=== PATIENT | male | born 1955 | race Caucasian/White ===

== ENCOUNTER 2018-03-27 08:30 | Outpatient (RCR) | payer MEDICARE, SELFPAY ==
--- NOTE | 2018-03-23 08:30 | PTTR_ITS ---
DATE: 03/23/18 SUBJECTIVE: Patient reports 0/10 pain in his right shoulder upon arrival. States he felt good after the exercises last session and didn t have any increases in pain. Still has not heard from neurosurgeon about appointment for spine surgery. Suggested he calls the referring physician to let her know. OBJECTIVE: Manual therapy: ([id number]). Performed right glenohumeral joint caudal distraction. Right glenohumeral joint grade 2/3 inferior and posterior mobilizations. STM right anterior and posterior cuff into upper trapezius and levator scapula. Cross friction massage over greater tuberosity. PROM into right shoulder flexion, scaption, ER, and IR. Therapeutic procedures ([id number]). [X] See flow sheet: Continued progressing right shoulder AAROM, scapular stabilization, and rotator cuff strengthening program. [X] Provided skilled instruction in proper exercise performance: for proper body mechanics and postural awareness. [X] Provided skilled manual cues to facilitate proper muscle recruitment and/or movement pattern: Several cues needed to keep arms in at side for scapular retraction with ER. Continued with wellness portion of program for completion of the ex x 15 minutes. Will continue to advance with strength training within symptom allowance. ROM steadily improving. Declined need of modality post session. Direct treatment time: 30 minutes Total treatment time: 45 minutes
--- NOTE | 2018-03-27 13:07 | PTTR_ITS ---
DATE: 03/27/18 SUBJECTIVE: Jadon states that he is doing well in regards to his shld. He sees neurology tomorrow, and is anxious to hear what they will recommend for his neck. OBJECTIVE: Manual therapy: ([id number]). mobilizations of right GH jt including posterior and inferior glides, caudal and lateral distractions. P/AAROM. CFM over anterior cuff and STM t/o deltoid region. I then continued with ROM. Therapeutic procedures ([id number]). * x See flow sheet: for RTC strengthening, scapular stabilizations and AAROM. * x Provided skilled instruction in proper exercise performance: proper scapular positioning and postural cues. Finished via wellness at no charge. declined the need for cryo post session. Direct treatment time: 30 min Total treatment time: 40 min
--- NOTE | 2018-04-10 11:49 | NT_ITS ---
April 10, 2018 Jadon cancelled all PT appts at this time due to recently under going cervical surgery. He will contact to reschedule when can resume plan of care and strength training for his RTC.
== END 2018-04-21 23:59 | disposition home or self-care (01) ==
LOC: PT 08:30
PROVIDERS: PCP Family Medicine; Referring Provider Student in an Organized Health Care Education/Training Program; Visit Provider Student in an Organized Health Care Education/Training Program
DX: Z47.89 Encounter for other orthopedic aftercare (principal); M75.121 Complete rotator cuff tear or rupture of right shoulder, not specified as traumatic; M19.011 Primary osteoarthritis, right shoulder
CPT/HCPCS: 97110; 97140

== ENCOUNTER → 2018-04-19 08:30 | Outpatient (CLI) | payer MEDICARE, SELFPAY | PROVIDERS: PCP Family Medicine; Visit Provider Student in an Organized Health Care Education/Training Program | DX: Z47.89 Encounter for other orthopedic aftercare (principal); M75.121 Complete rotator cuff tear or rupture of right shoulder, not specified as traumatic; M19.011 Primary osteoarthritis, right shoulder ==

== ENCOUNTER 2018-05-22 02:23 | Outpatient (CLI) | payer MEDICARE, SELFPAY ==
[2018-05-22 11:17] LABS: Hemoglobin A1C 10.5 % (4.5-6.2)
== END 2018-05-22 02:43 ==
PROVIDERS: PCP Family Medicine; Visit Provider Family Medicine
DX: E11.9 Type 2 diabetes mellitus without complications (principal)
CPT/HCPCS: 36415; 83036

== ENCOUNTER 2018-05-24 01:00 | Outpatient (CLI) | payer MEDICARE, SELFPAY ==
[2018-05-24] MEDS: Barium Sulfate 700 MG TAB PO (09:20)
[2018-05-24] MEDS: Barium Sulfate 60% W/V 355 ML BTL PO (09:23)
--- NOTE | 2018-05-24 09:24 | DI.RAD_ITS ---
SYMPTOM/DIAGNOSIS: DIFFICULTY SWALLOWING SOLIDS, DYSPHAGIA, R13.10 BARIUM SWALLOW: Fluoroscopy Time: 2 minutes 01 second Routine examination was performed. PA and lateral chest was performed. Heart size and pulmonary vasculature are within normal limits. No focal consolidating infiltrates, effusions or pneumothoraces are identified. Degenerative changes are seen in the spine. Barium swallow was performed according to protocol. During swallowing, there was penetration of contrast. During the prone portion of the examination, there was aspiration. The patient did exhibit the cough reflex. No gastroesophageal reflux was seen. No intrinsic or extrinsic masses are seen in the esophagus. Note was made of an asymmetric collection of contrast in the right vallecula and right puriform sinus. Following the ingestion of a barium tablet, the tablet collected in the right vallecula. This corresponded to the sensation the patient feels with solid food.. The table eventually passed into the stomach. IMPRESSION: 1. Findings of aspiration during the examination. 2. Asymmetric collection of fluid and solidi material in the right vallecula and puriform sinus during the examination. A modified barium swallow performed in conjunction with the Department of Speech Pathology is recommended in this patient.
== END 2018-05-24 01:20 ==
PROVIDERS: PCP Family Medicine; Visit Provider Family Medicine
DX: R13.10 Dysphagia, unspecified (principal); T18.8XXA Foreign body in other parts of alimentary tract, initial encounter
CPT/HCPCS: 74220; J3490

== ENCOUNTER → 2018-07-12 08:27 | Outpatient (BNVA) | payer MEDICARE, SELFPAY | PROVIDERS: PCP Family Medicine; Visit Provider Student in an Organized Health Care Education/Training Program | DX: M75.121 Complete rotator cuff tear or rupture of right shoulder, not specified as traumatic (principal); Z47.89 Encounter for other orthopedic aftercare; M54.5 Low back pain; E11.9 Type 2 diabetes mellitus without complications; Z79.84 Long term (current) use of oral hypoglycemic drugs; I10 Essential (primary) hypertension | CPT/HCPCS: 99213 ==

== ENCOUNTER 2018-08-24 08:59 | Outpatient (CLI) | payer MEDICARE, SELFPAY ==
[2018-08-24 12:15] LABS: Hemoglobin A1C 7.2 % (4.5-6.2)
== END 2018-08-24 09:19 ==
PROVIDERS: PCP Family Medicine; Visit Provider Family Medicine
DX: E11.9 Type 2 diabetes mellitus without complications (principal)
CPT/HCPCS: 36415; 83036

== ENCOUNTER 2018-09-08 01:36 | Outpatient (CLI) | payer MEDICARE, SELFPAY ==
[2018-09-08 12:45] LABS: Anion Gap 8.3 mmol/L (3-11); BUN 24 mg/dL (7-18); CO2 27.7 mmol/L (21.0-32.0); CREATININE 1.45 mg/dL (0.70-1.30); Calcium 9.4 mg/dL (8.5-10.1); Chloride 99 mmol/L (98-107); Estimated GFR 49.15 (mL/min/1.73m2); Glucose 165 mg/dL (70-100); Sodium 135 mmol/L (136-145)
== END 2018-09-08 01:56 ==
PROVIDERS: Family Medicine; PCP Family Medicine; Visit Provider Family Medicine
DX: E87.5 Hyperkalemia (principal)
CPT/HCPCS: 36415; 80048

== ENCOUNTER 2018-10-06 08:12 | Emergency (ER) | payer MEDICARE, SELFPAY ==
[2018-10-06 08:16] VITALS: BP 142/86; PULSE 58; RESP 16; TEMP 36.6; O2SAT 96
--- NOTE | 2018-10-06 08:33 | ED.GENADUL_ITS ---
Discharge Plan Disposition Patient Disposition: HOME Condition: Stable Discharge Details Chief Complaint: Chest/Rib Clinical Impression: Contusion of rib on right side Primary Care Provider: Kleber Méndez ED Provider: Valentín Cordero Home Meds and New Rx's Prescriptions: Continued glipizide 10 mg tablet 10 mg PO BID Qty: 60 RF: 2 FreeStyle Lite Strips strip 1 ea Miscellaneous DAILY Qty: 100 RF: 5 cyclobenzaprine 10 mg tablet 10 mg PO TID PRN (Reason: muscle spasm) Qty: 10 RF: 0 benzonatate 100 mg capsule 100 mg PO TID PRN (Reason: cough) Qty: 30 RF: 2 oxycodone 5 mg tablet 5 mg PO HS MDD 5 mg Qty: 30 RF: 0 CENTRUM SILVER TABLET 1 EACH tablet 1 tab PO DAILY RF: 0 NARCOTIC CONTRACT RF: 0 aspirin [Aspirin Low-Strength] 81 MG tablet,chewable 81 mg PO DAILY RF: 0 blood-glucose meter [FreeStyle Lite Meter] 1 EACH kit 1 ea Miscellaneous DAILY Qty: 1 RF: 0 allopurinol 100 MG tablet 100 mg PO DAILY Qty: 90 RF: 4 amitriptyline 10 MG tablet 1 tab PO HS Qty: 90 RF: 4 sertraline [Zoloft] 50 MG tablet 1 tab PO QAM Qty: 90 RF: 4 clotrimazole 45 GM cream Topical BID Qty: 45 RF: 3 lancets [FreeStyle Lancets] 28 gauge misc 1 ea Miscellaneous DAILY Qty: 100 RF: 5 metformin 1,000 mg tablet extended release 24hr 1,000 mg PO DAILY Qty: 90 RF: 4 lorazepam 2 mg tablet 2 mg PO HS Qty: 30 RF: 2 lisinopril 20 mg tablet 20 mg PO DAILY Qty: 90 RF: 4 ibuprofen 800 mg tablet 800 mg PO TID PRN (Reason: pain) Qty: 90 RF: 2 Discharge Instructions Instructions: Rib Contusion (ED) Additional Instructions: If you are not better in a week see your primary care provider if you feel you are having severe more pain or new pain such as abdominal pain or headaches return to the emergency department Medical Decision Making 63 yo male states he slipped on ice 2 days ago from standing height and landd on his right side with his phone in his chest pocket. He denies head trauma, loc and has not had n/v or headache since and has no midline neck pain or tenderness even on rom. Has point tenderness over right 4-8th ribs in midaxillary line, no abdominal tenderness, clear lungs. He is declining pain meds at this time, came in to get checked for rib fx's. Suspect contusion but will xray to eval for fx vs ptx. Has no abdominal tenderness so do not feel abd imaging indicated and no back tenderness, neck pain or SOUSA so do not feel imaging of head, c spine and back indicated. xray negative on my read, remains stable. He is declining pain medication for home, I will send him home with incentive spirometer. I advised if radiology sees anything that I missed I will call him Differential Diagnosis contusion, fx, ptx Imaging Data Radiologic Study: Attestation: I personally reviewed and interpreted this imaging study as follows: Imaging: X-Ray My impression: no acute findings HPI General Mode of arrival: ambulatory . Date/Time Provider Initiated Documentation: 10/06/18 08:14 . Limitations to Documentation: no limitations . Information obtained by: patient . History of Present Illness 63 year old M presents to the emergency department with the chief complaint of right sided chest pain, described as moderate, with intensity rated at 5. Quality is described as stabbing and aching, and is localized to the chest. Patient reports no radiation. Patient started experiencing this day(s) (2) and it has been constant. No relieving factors improve symptom(s), Other factors that worsen symptoms (palpation) . Patient notes no other symptoms.. Patient did receive the following treatments prior to arrival, none Related Data Home Medications Medication Instructions Recorded Confirmed Centrum Silver Tablet 1 tab PO DAILY 12/13/12 10/06/18 Narcotic Contract 06/06/13 08/24/18 aspirin [Aspirin Low-Strength] 81 mg PO DAILY tab-cap 07/05/14 10/06/18 blood-glucose meter [FreeStyle #1 kit 01/12/17 08/24/18 Lite Meter] allopurinol 100 mg PO DAILY #90 tab-cap 09/13/17 10/06/18 amitriptyline 1 tab PO HS #90 tab 11/22/17 10/06/18 sertraline [Zoloft] 1 tab PO QAM #90 tab 11/22/17 10/06/18 clotrimazole 0 TOPICAL BID #45 g 04/06/18 08/24/18 blood sugar diagnostic strips #100 strip 07/07/18 08/24/18 glipizide 10 mg tablet 10 mg PO BID #60 tab 07/07/18 10/06/18 lancets 28 gauge #100 ea 07/11/18 08/24/18 cyclobenzaprine 10 mg tablet 10 mg PO TID PRN #10 tab 07/12/18 10/06/18 oxycodone 5 mg tablet 5 mg PO HS #30 tab MDD 5 mg 07/28/18 10/06/18 lorazepam 2 mg tablet 2 mg PO HS #30 tab-cap 08/07/18 10/06/18 metformin ER 1,000 mg 1,000 mg PO DAILY #90 tab-cap 08/07/18 10/06/18 tablet,extended release 24hr benzonatate 100 mg capsule 100 mg PO TID PRN #30 cap 08/24/18 10/06/18 lisinopril 20 mg tablet 20 mg PO DAILY #90 tab 09/14/18 10/06/18 ibuprofen 800 mg tablet 800 mg PO TID PRN #90 tab 09/26/18 10/06/18 Previous Rx's Medication Instructions Recorded allopurinol 100 mg PO DAILY #90 tab-cap 09/13/17 amitriptyline 1 tab PO HS #90 tab 11/22/17 sertraline [Zoloft] 1 tab PO QAM #90 tab 11/22/17 blood sugar diagnostic strips #100 strip 07/07/18 glipizide 10 mg tablet 10 mg PO BID #60 tab 07/07/18 lancets 28 gauge #100 ea 07/11/18 cyclobenzaprine 10 mg tablet 10 mg PO TID PRN #10 tab 07/12/18 oxycodone 5 mg tablet 5 mg PO HS #30 tab MDD 5 mg 07/28/18 lorazepam 2 mg tablet 2 mg PO HS #30 tab-cap 08/07/18 metformin ER 1,000 mg 1,000 mg PO DAILY #90 tab-cap 08/07/18 tablet,extended release 24hr benzonatate 100 mg capsule 100 mg PO TID PRN #30 cap 08/24/18 lisinopril 20 mg tablet 20 mg PO DAILY #90 tab 09/14/18 ibuprofen 800 mg tablet 800 mg PO TID PRN #90 tab 09/26/18 Allergies Allergy/AdvReac Type Severity Reaction Status Date / Time acetaminophen [From Tylenol] Allergy Intermediate PT. STATES Unverified 10/06/18 08:23 MEDICATION MAKES HIS HEART RACE. latex Allergy Intermediate rash, Unverified 10/06/18 08:23 dizziness zolpidem AdvReac CONFUSION Unverified 10/06/18 08:23 Review of Systems Review of Systems All systems reviewed & are unremarkable except as noted in HPI and below Constitutional Denies chills, Denies fever(s) and Denies weakness ENT Denies change in voice Cardiovascular Denies dyspnea Respiratory Denies cough and Denies dyspnea Gastrointestinal Denies abdominal pain, Denies nausea and Denies vomiting Integumentary/Breasts Denies rash Neurologic Denies weakness PFSH Medical History Complete rotator cuff tear or rupture of right shoulder, not specified as traumatic (Chronic 12/21/17) Cervical myelopathy with cervical radiculopathy (Resolved 03/08/18) Cervical myelopathy Chronic pain syndrome DM type 2 (diabetes mellitus, type 2) Depression Essential hypertension GERD (gastroesophageal reflux disease) Generalized osteoarthritis Gout Hx of Raynaud's syndrome Hyperlipidemia Rotator cuff tear Surgical History Colonoscopy - MAC EGD - MAC Fracture, Open Treatment Emma Fundoplication Rotator Cuff Repair Family History Mother Essential hypertension Stroke Father Neoplasm Sister No problems noted. Brother Asthma Brother No problems noted. Brother No problems noted. Daughter Essential hypertension Daughter Essential hypertension Social History highest education level completed: high school graduate current occupation: none pets and animals: Yes pets and animals: dog(s) frequency: daily duration: > 90 minutes/day Smoking and Tabacco status: Former Tobacco Use alcohol intake: never substance use type: does not use special adan needs: No Exam Const General: no acute distress Orientation: alert HENMT Head: normal to inspection Ears: external ears normal General nose exam: external nose normal Mouth: moist mucous membranes Eyes General: appearance normal, both eyes and all related structures Neck Neck: normal visual inspection Chest Chest: other (tenderness on right chest in mid axillary line over 4-8th ribs) Resp Effort & Inspection: normal respiratory effort and able to speak in complete sentences Cardio Rate: regular rate GI Inspection: normal to inspection and no abdominal wall ecchymosis Palpation: soft and nontender Skin General skin exam: no rashes or lesions noted Neuro General: alert and oriented x3 Extrem General: normal to inspection Psych Mental Status: mental status grossly normal
--- NOTE | 2018-10-06 08:41 | DI.RAD_ITS ---
SYMPTOM/DIAGNOSIS: RT SIDED CHEST PAIN, H/O FALL PA AND LATERAL CHEST: Comparison is made with 05/24/18. Heart size and pulmonary vasculature are within normal limits. The lungs show no infiltrates, effusions or pneumothoraces. There are deformities of the anterolateral aspects of the right ninth and tenth ribs. These are changed compared to the chest xray from 05/24/18. The findings are suggestive of mildly displaced fractures. Degenerative changes are seen in the spine. IMPRESSION: Fractures involving the anterior lateral aspects of the right ninth and tenth ribs. No pneumothorax or pleural effusion. The findings were discussed with Dr Cordero of the ER on the of the examination.
--- NOTE | 2018-10-06 16:23 | W.ED.FU ---
pt called earlier and I informed him of the rib fx's and he understood the findings. I did at that time again state I could prescribe pain meds but he declined. He then called several hours later and did want the prescription. He is still not sure if he will come get the presription but I left a prescription for oxycodone for him if he would like it and he also understands he can be seen here again if anything worsens.
== END 2018-10-06 08:57 | disposition home or self-care (01) ==
PROVIDERS: Emergency Provider Emergency Medicine; PCP Family Medicine
DX: S22.41XA Multiple fractures of ribs, right side, initial encounter for closed fracture (principal); W00.0XXA Fall on same level due to ice and snow, initial encounter; E11.9 Type 2 diabetes mellitus without complications; Z79.84 Long term (current) use of oral hypoglycemic drugs
CPT/HCPCS: 99283; 71046

== ENCOUNTER 2018-11-21 08:49 | Outpatient (CLI) | payer MEDICARE, SELFPAY ==
[2018-11-21 12:29] LABS: Hemoglobin A1C 7.1 % (4.5-6.2)
== END 2018-11-21 09:09 ==
PROVIDERS: PCP Family Medicine; Visit Provider Family Medicine
DX: E11.9 Type 2 diabetes mellitus without complications (principal)
CPT/HCPCS: 36415; 83036

== ENCOUNTER → 2019-01-18 08:51 | Outpatient (BNVA) | payer MEDICARE, SELFPAY | PROVIDERS: PCP Family Medicine; Referring Provider Family Medicine; Visit Provider Physical Therapy Assistant | DX: Z12.11 Encounter for screening for malignant neoplasm of colon (principal); Z79.82 Long term (current) use of aspirin; E11.9 Type 2 diabetes mellitus without complications; Z79.84 Long term (current) use of oral hypoglycemic drugs ==

== ENCOUNTER 2019-02-02 06:49 | Day surgery (SDC) | payer MEDICARE, SELFPAY ==
[2019-02-02 07:14] VITALS: BP 103/65; PULSE 59; RESP 16; TEMP 36.3; O2SAT 100
[2019-02-02] MEDS: Lactated Ringers 1,000 ML 80 ML IV (07:45)
--- NOTE | 2019-02-02 08:45 | BOWEL_PTH ---
PATIENT: Jadon Crooks LOC: [facility] U#:[id number] AGE/SX: 63/M ROOM: RE02/02/[address]: Esperanza Byrnes : 1955 BED: DIS: 02/02/2019 SPEC #: [id number] RECD: 02/02/19 12:08 STATUS: BERNIE REMedina #: [id number] JIN: 02/02/19 08:[address]: Esperanza Byrnes DEPT: Surgical Specimen RECD BY: Sherice Scott ENTERED: 02/02/19 12:08 SP TYPE: Bowel OTHR DR: Kleber Méndez MD Tissues: 1 - BIOPSY BOWEL 2 - BIOPSY BOWEL Procedures: GROSS AND MICRO LEVEL 4 Comments: [id number]
--- NOTE | 2019-02-02 09:02 | W.COLOREPORT ---
Date of service: 02/02/19 Time of Service: 09:02 Colonoscopy Report Date of procedure: 02/02/19 Pre-op diagnosis general: CRC screen Post-op diagnosis procedure note: other (polyps x2 ) Procedure: CE and polypectomy x2 Surgeon: Esperanza Byrnes Anesthesia proc note operative: GETA Estimated blood loss (mL): 2 Pathology: other Complications: None Disposition: PACU Indications: screen Prep: Miralax Retraction Time: 15 mins Procedure Description: After informed consent was obtained the patient was taken to the procedure room and placed in a left decubitous position. Monitors were applied and a time out was done. The patients name, date of , procedure, allergies to medications and metal in their body was reviewed. The patient was then sedated. Once sedated and comfortable a rectal exam was done. External exam was normal. Internal exam revealed a normal sphincter tone and no palpable masses. The prostate nl what i could palpate. The scope was then introduced and retrofelexed. No internal hemorrhoids were identified. The scope was then advanced to the cecum without difficulty. The TI and appendiceal orifice were identified. The prep was good. The scope was then slowly retracted over 15 minutes back into the rectum. Polyps were removed at 70cm/ascending- cold biter and rectum- hot snare and clip. All specimen was retrieved and no bleeding was noted. There were no diverticula. Mucosa and vascular pattern was normal to gross examination. The scope was removed and the patient was woken up and taken back to Same day surgery in stable condition. The patient tolerated the procedure well and there were no immediate complications. Follow up: The patient should follow up in 3-5 year path pd, unless they develop changes in bowel habits or other new gastrointestinal complaints.
--- NOTE | 2019-02-02 09:06 | PDOC.DSDIS_ITS ---
Discharge Plan Disposition Patient Disposition: HOME Condition: Good Discharge Details Reason For Visit: CE Attending Provider: Esperanza Byrnes Primary Care Provider: Kleber Méndez Home Meds and New Rx's Prescriptions: Continued FreeStyle Lite Strips strip 1 ea Miscellaneous DAILY Qty: 100 RF: 5 amitriptyline 10 mg tablet 10 mg PO HS Qty: 90 RF: 4 sertraline [Zoloft] 50 mg tablet 50 mg PO QAM Qty: 90 RF: 4 melatonin 3 mg tablet 6 mg PO HS RF: 0 cyclobenzaprine 10 mg tablet 10 mg PO TID PRN (Reason: muscle spasm) Qty: 10 RF: 0 benzonatate 100 mg capsule 100 mg PO TID PRN (Reason: cough) Qty: 30 RF: 2 CENTRUM SILVER TABLET 1 EACH tablet 1 tab PO DAILY RF: 0 blood-glucose meter [FreeStyle Lite Meter] 1 EACH kit 1 ea Miscellaneous DAILY Qty: 1 RF: 0 lancets [FreeStyle Lancets] 28 gauge misc 1 ea Miscellaneous DAILY Qty: 100 RF: 5 metformin 1,000 mg tablet extended release 24hr 1,000 mg PO DAILY Qty: 90 RF: 4 lisinopril 20 mg tablet 20 mg PO DAILY Qty: 90 RF: 4 glipizide 10 mg tablet 10 mg PO BID Qty: 180 RF: 4 lorazepam 2 mg tablet 2 mg PO HS Qty: 30 RF: 2 oxycodone 5 mg tablet 5 mg PO HS MDD 5 mg Qty: 30 RF: 0 Discontinued allopurinol 100 mg tablet 100 mg PO DAILY Qty: 90 RF: 4 polyethylene glycol 3350 17 gram/dose powder 238 g PO ONCE Qty: 238 RF: 0 bisacodyl [Dulcolax (bisacodyl)] 5 mg tablet,delayed release (DR/EC) 5 mg PO ONCE Qty: 4 RF: 0 aspirin [Aspirin Low-Strength] 81 MG tablet,chewable 81 mg PO DAILY RF: 0 ibuprofen 800 mg tablet 800 mg PO TID PRN (Reason: pain) Qty: 90 RF: 2 Discharge Instructions Additional Instructions: Findings: x2 polyps -no ASA/Nsaids (ibuprofen) x 2 wks Follow up:Repeat in 3-5 yrs. Will send a letter in 2-3 wks w/ results of polyp adn when to repeat scope Please call if you develop: fevers >101.5 Nausea or Vomiting Abdominal pain that is not transient DAY SURGERY UNIT POST COLONOSCOPY INSTRUCTIONS 1. Because there will be medication in your system for the next 24 hours, you may feel a little sleepy. Your coordination will be affected. Therefore: a. Do not drive or operate dangerous equipment for 24 hours. b. Do not drink alcohol beverages for 24 hours (not even beer). c. Plan to go home and rest for the day. 2. Generally there are no restrictions on your activity after a day or so has gone by, but you may feel a bit fatigued for a few days. 3 After you arrive home you may have a light meal and return to a normal diet as you can tolerate it without feeling sick to your stomach. 4. After surgery, you may feel pain or discomfort. This should be only transi ent, but if it persists please contact your doctor. 5. If there are any questions regarding the findings of your procedure, please feel free to contact your doctor. 6. If you are unable to contact your doctor with a problem, contact the hospital at [phone]. 7. Continue all your regular medications unless directed otherwise. I understand the above instructions and have no questions. Signature of Patient or Responsible Adult Escort Date/Time Name of Responsible Adult Escort Signature of Nurse Date/Time Activity:: no strenuous acitivity or heavy lifting x 24 hrs Diet:: small lt meals today Discharge Orders Discharge Orders: Discharge Order (Routine); Ordered 02/02/19 Ordered By: Esperanza Byrnes DS: Diagnosis Discharge Diagnosis (1) Adenomatous polyps: Status: Acute
[2019-02-02 09:36] VITALS: BP 122/77; PULSE 55; RESP 16; TEMP 36.4; O2SAT 100
== END 2019-02-02 09:54 | disposition home or self-care (01) ==
PROVIDERS: PCP Family Medicine; Visit Provider Surgery
PROC: 0DJD8ZZ Inspection of Lower Intestinal Tract, Via Natural or Artificial Opening Endoscopic (ICD-10-PCS; CPT 45378; principal; 2019-02-02 08:15)
DX: Z12.11 Encounter for screening for malignant neoplasm of colon (principal); D12.2 Benign neoplasm of ascending colon; D12.8 Benign neoplasm of rectum; E11.9 Type 2 diabetes mellitus without complications; Z79.84 Long term (current) use of oral hypoglycemic drugs; I10 Essential (primary) hypertension; K21.9 Gastro-esophageal reflux disease without esophagitis
CPT/HCPCS: 45385; 45380; 88305

== ENCOUNTER 2019-02-26 07:13 | Outpatient (CLI) | payer MEDICARE, SELFPAY ==
[2019-02-26 11:19] LABS: Hemoglobin A1C 6.9 % (4.5-6.2)
== END 2019-02-26 07:33 ==
PROVIDERS: PCP Family Medicine; Visit Provider Family Medicine
DX: E11.9 Type 2 diabetes mellitus without complications (principal)
CPT/HCPCS: 36415; 83036

== ENCOUNTER 2019-05-23 01:20 | Outpatient (CLI) | payer MEDICARE, SELFPAY ==
--- NOTE | 2019-05-23 08:13 | DI.RAD_ITS ---
EXAM: XR HAND LT COMPLETE INDICATION: splinter webspace thumb and index, T14.8XXA. COMPARISON: No exams were available for comparison TECHNIQUE: 2D digital imaging was performed. FINDINGS: No radiopaque foreign body is identified. No acute fracture or dislocation is present. There is frag mentation and sclerosis of the lunate consistent with advanced avascular necrosis. Joint space narro wing, sclerosis, periarticular spurring is seen at the 3rd metacarpophalangeal joint. There are dege nerative changes seen at the radiocarpal joint. IMPRESSION: No radiopaque foreign body in the soft tissues.
== END 2019-05-23 01:40 ==
PROVIDERS: PCP Family Medicine; Visit Provider Emergency Medicine
DX: S60.552A Superficial foreign body of left hand, initial encounter (principal); M19.042 Primary osteoarthritis, left hand
CPT/HCPCS: 73130

== ENCOUNTER 2019-05-28 01:09 | Outpatient (CLI) | payer MEDICARE, SELFPAY ==
--- NOTE | 2019-05-28 07:29 | DI.CT_ITS ---
EXAM: CT CERVICAL SPINE W CLINICAL HISTORY: Neck pain and paresthesias hands,m54.2. TECHNIQUE: COMPARISON: No exams were available for comparison FINDINGS: CT examination cervical spine was performed with bolus infusion of 100 cc of Omnipaque 350. There ar e prominent hypertrophic degenerative changes predominantly involving anterior vertebral endplates an d vertebral bodies. There is plate and screw fixation with an anterior fusion from C5 through C7. T he fusion appears intact as visualized. Bony spinal canal appears well maintained with slight narrow ing secondary to hypertrophic osteophyte formation particularly at the C6. no evidence of acute frac ture. No paraspinal mass or abscess. Tracheolaryngeal structures appear intact. Vasculature appear s intact. No cervical mass or adenopathy. . IMPRESSION: Conclusion postsurgical changes with anterior fusion. No other significant findings apart from degene rative changes
--- NOTE | 2019-05-28 07:29 | DI.CT_ITS ---
EXAM: CT THORACIC SPINE W CLINICAL HISTORY: Thoracic spine pain when driving. TECHNIQUE: COMPARISON: No exams were available for comparison FINDINGS: CT examination of thoracic spine was performed with intravenous infusion 100 cc of Omnipaque 350. Vi sualized abdominal structures including portions of liver spleen aorta kidneys and adrenals are unrem arkable. No adenopathy. No enhancing perispinal mass. Moderate degenerative changes of the thoraci c spine noted multilevel loss disc height moderate hypertrophic spurring of the vertebral endplates a nd facet joints. No erosive or destructive lesion. No compression fracture identified. IMPRESSION: Degenerative changes of thoracic spine.
[2019-05-28 08:35] LABS: CREATININE 1.45 mg/dL (0.70-1.30)
[2019-05-28 09:05] LABS: Hemoglobin A1C 6.4 % (4.5-6.2)
[2019-05-28] MEDS: Omnipaque 350 MG/ML 100 ML BTL IJ (09:24)
[2019-05-28] MEDS: Normal Saline Flush 10 ML SYR IVP (09:27)
== END 2019-05-28 01:29 ==
PROVIDERS: PCP Family Medicine; Visit Provider Family Medicine
DX: M54.6 Pain in thoracic spine (principal); E11.9 Type 2 diabetes mellitus without complications; M54.2 Cervicalgia; M47.813 Spondylosis without myelopathy or radiculopathy, cervicothoracic region; R20.2 Paresthesia of skin; Z98.1 Arthrodesis status; S60.552A Superficial foreign body of left hand, initial encounter; W45.8XXA Other foreign body or object entering through skin, initial encounter
CPT/HCPCS: 99214; 72126; 72129; 82565; 83036; J3490

== ENCOUNTER 2019-07-28 08:39 | Emergency (ER) | payer MEDICARE, SELFPAY ==
[2019-07-28 08:44] VITALS: BP 145/98; PULSE 67; RESP 12; TEMP 36.3; O2SAT 95
--- NOTE | 2019-07-28 09:41 | W.ED.GENAD ---
Discharge Plan Disposition Patient Disposition: HOME Condition: Good Discharge Details Chief Complaint: Orthopedic Clinical Impression: Gout Primary Care Provider: Kleber Méndez ED Provider: Kezia Chinchilla Home Meds and New Rx's Prescriptions: New colchicine 0.6 mg capsule 0.6 mg PO DAILY Qty: 7 RF: 0 No Action (DME) FreeStyle Lite Strips strip 1 ea Miscellaneous DAILY Qty: 100 RF: 5 amitriptyline 10 mg tablet 10 mg PO HS Qty: 90 RF: 4 sertraline [Zoloft] 50 mg tablet 50 mg PO QAM Qty: 90 RF: 4 melatonin 3 mg tablet 6 mg PO HS RF: 0 CENTRUM SILVER TABLET 1 EACH tablet 1 tab PO DAILY RF: 0 (DME) blood-glucose meter [FreeStyle Lite Meter] 1 EACH kit 1 ea Miscellaneous DAILY Qty: 1 RF: 0 (DME) lancets [FreeStyle Lancets] 28 gauge misc 1 ea Miscellaneous DAILY Qty: 100 RF: 5 lisinopril 20 mg tablet 20 mg PO DAILY Qty: 90 RF: 4 glipizide 10 mg tablet 10 mg PO BID Qty: 180 RF: 4 metformin 1,000 mg tablet extended release 24hr 1,000 mg PO DAILY Qty: 90 RF: 4 lorazepam 2 mg tablet 2 mg PO HS Qty: 30 RF: 2 allopurinol 100 mg tablet 100 mg PO DAILY Qty: 90 RF: 4 oxycodone 5 mg tablet 5 mg PO QHS MDD 5 mg PRN (Reason: pain) Qty: 30 RF: 0 Discharge Instructions Instructions: Gout (ED) Additional Instructions: Ice to your foot for discomfort. Use colchicine as prescribed. Take 2 tablets once you receive the medication and take 1 additional tablet an hour after your initial dose. On day 2 take 1 tablet daily. Discontinue medication when your pain has improved for 1 to 2 days and return to your normal medications. Rest activities as tolerated. Your x-ray appears normal. Pending radiologist report. Follow-up with your primary care doctor. Return for any alarming symptoms, worsening or concerns sooner if needed Medical Decision Making Is a 64-year-old patient with known gout who presents to the emergency room for reevaluation of his left foot as he recently was seen in the ER for complaints of gout. Began on a course of prednisone. Patient reports some relief of his pain but in the last week symptoms have again returned and he is having persistent discomfort in the left foot at the base of the second toe. On exam patient has an area of swelling and tenderness with no associated erythema, signs of infection. Pulses intact. Distal neurovascularly intact. No pain to the base of the great toe. Patient does report that the area of pain is typical of his gout flare. Given patient's lack of improvement I will perform a quick x-ray of the foot to be sure there are no associated erosions or stress fractures which could otherwise explain his pain. Patient's x-ray does not appear to have any focal abnormality at his site of pain. Discussed repeat prednisone prescription versus trial of colchicine. Patient does prefer change in medication treatment at this time. Creatinine clearance calculated which is 48. Will prescribe colchicine, patient is aware of the renal risk. Patient encouraged discontinue medication as soon as symptoms are improving and begin allopurinol after discontinue colchicine. Patient does have follow-up with his primary care doctor in 1 week. Patient offered postoperative shoe and declines at this time. Rice encouraged. The patient was stable and requested discharge. Prior to discharge, my usual and customary return precautions were reviewed with the patient - this included follow-up instructions and reasons to return to the Emergency Department if conditions worsens, does not improve as expected, or other new concerns arise. HPI General Date/Time Provider Initiated Documentation: 07/28/19 08:51. HPI Narrative: This is a 64-year-old patient who presents to the emergency room for return of left foot pain. Patient reports recently had a flare of gout which he is quite familiar with. Patient reports he has had gout in a similar location in the past and his base of the second toe in his left foot. Patient reports he completed a prednisone course which was somewhat helpful for his left foot pain. Patient reports in the last week return of foot pain. He typically takes allopurinol for control of his gout. Patient denies any injury or trauma to the foot. Patient denies numbness, tingling or weakness. Limping gait. Related Data Home Medications Medication Instructions Recorded Confirmed Centrum Silver Tablet 1 tab PO DAILY 12/13/12 07/28/19 blood-glucose meter [FreeStyle #1 kit 01/12/17 07/28/19 Lite Meter] blood sugar diagnostic #100 strip 07/07/18 07/28/19 lancets 28 gauge #100 ea 07/11/18 07/28/19 lisinopril 20 mg tablet 20 mg PO DAILY #90 tab 09/14/18 07/28/19 glipizide 10 mg tablet 10 mg PO BID #180 tab 10/17/18 07/28/19 amitriptyline 10 mg tablet 10 mg PO HS #90 tab 11/21/18 07/28/19 sertraline 50 mg tablet 50 mg PO QAM #90 tab 11/21/18 07/28/19 melatonin 3 mg tablet 6 mg PO HS tab 01/18/19 07/28/19 metformin 1,000 mg tablet,extended 1,000 mg PO DAILY #90 tab-cap 04/10/19 07/28/19 release 24hr lorazepam 2 mg tablet 2 mg PO HS #30 tab-cap 05/07/19 07/28/19 allopurinol 100 mg tablet 100 mg PO DAILY #90 tab-cap 07/06/19 07/28/19 oxycodone 5 mg tablet 5 mg PO QHS PRN #30 tab MDD 5 mg 07/26/19 07/28/19 colchicine 0.6 mg PO DAILY #7 cap 07/28/19 Previous Rx's Medication Instructions Recorded blood sugar diagnostic #100 strip 07/07/18 lancets 28 gauge #100 ea 07/11/18 lisinopril 20 mg tablet 20 mg PO DAILY #90 tab 09/14/18 glipizide 10 mg tablet 10 mg PO BID #180 tab 10/17/18 amitriptyline 10 mg tablet 10 mg PO HS #90 tab 11/21/18 sertraline 50 mg tablet 50 mg PO QAM #90 tab 11/21/18 metformin 1,000 mg tablet,extended 1,000 mg PO DAILY #90 tab-cap 04/10/19 release 24hr lorazepam 2 mg tablet 2 mg PO HS #30 tab-cap 05/07/19 allopurinol 100 mg tablet 100 mg PO DAILY #90 tab-cap 07/06/19 oxycodone 5 mg tablet 5 mg PO QHS PRN #30 tab MDD 5 mg 07/26/19 colchicine 0.6 mg PO DAILY #7 cap 07/28/19 Allergies Allergy/AdvReac Type Severity Reaction Status Date / Time acetaminophen [From Tylenol] Allergy Intermediate PT. STATES Verified 07/28/19 08:46 MEDICATION MAKES HIS HEART RACE. latex Allergy Intermediate rash, Verified 07/28/19 08:46 dizziness zolpidem AdvReac CONFUSION Verified 07/28/19 08:46 General Stated Complaint: Orthopedic WERO: 4 Review of Systems All systems reviewed & are unremarkable except as noted in HPI and below Constitutional Constitutional: Denies chills, Denies fever(s) and Denies malaise Musculoskeletal Musculoskeletal: Reports abnormal gait (limping gait), Denies numbness and Denies tingling Integumentary/Breasts Skin/Breast: Reports skin swelling and Denies wounds Neurologic Neurologic: Reports abnormal gait (limping gait), Denies numbness and Denies tingling [facility] Medical History Adenomatous colon polyp (Resolved) 02/02/19 Dr Esperanza Byrnes, [facility], tubular adenoma, repeat in five years. Cervical myelopathy Cervical myelopathy with cervical radiculopathy (Resolved 03/08/18) Chronic pain syndrome Complete rotator cuff tear or rupture of right shoulder, not specified as traumatic (Chronic 12/21/17) Repaired Depression DM type 2 (diabetes mellitus, type 2) Essential hypertension Foreign body of hand, left, superficial (Inactive) Left thumb webspace wooden splinter Generalized osteoarthritis GERD (gastroesophageal reflux disease) Gout Hx of Raynaud's syndrome Hyperlipidemia Rotator cuff tear Social History Smoking/Tobacco Use Status: Former Tobacco Use Alcohol Intake: never Drug use: Never Substance use type: does not use current occupation: none Pets and animals: Yes Pets and animals: dog(s) Current gender identity: male Duration: > 90 minutes/day Frequency: daily Special adan needs: No Do you feel safe at home: Yes Do you feel safe in your relationship?: Yes Exam Narrative Exam Narrative: CONST: Healthy appearing patient, in no acute distress. Well hydrated. Alert and alert. MUSCULOSKELETAL: Normal Gait. FROM of all extremities. No knee pain, mart pain or calf pain with palpation. No ankle pain with palpation. Patient has tenderness at the base of the second toe on the left foot. Pulses are intact. Mild swelling noted at the site with no significant erythema. No pain at the base of the great toe. Full range of motion. No open wounds. sensation intact distally SKIN: Normal. Dry. No rashes. NEURO: Alert and awake. Speech clear. PSYCH: Normal affect. Cooperative. Course Vital Signs Vital signs: Vital Signs Temperature 36.3 C L 07/28/19 08:44 Pulse 67 07/28/19 08:44 Respiratory Rate 12 07/28/19 08:44 Blood Pressure 145/98 H 07/28/19 08:44 Pulse Oximetry 95 07/28/19 08:44 Temperature 36.3 C L 07/28/19 08:44 Temperature Source Temporal Artery Scan 07/28/19 08:44 Pulse 67 07/28/19 08:44 Respiratory Rate 12 07/28/19 08:44 Respiratory Effort Non-Labored 07/28/19 08:46 Blood Pressure 145/98 H 07/28/19 08:44 Blood Pressure Position Sitting 07/28/19 08:44 Pulse Oximetry 95 07/28/19 08:44 Oxygen Delivery Method Room Air 07/28/19 08:44 Oxygen Flow Rate 0 07/28/19 08:44 Pain Level 8 07/28/19 08:54
--- NOTE | 2019-07-28 09:55 | DI.RAD_ITS ---
EXAM: XR FOOT LT COMPLETE INDICATION: pain base of 2nd toe. COMPARISON: No exams were available for comparison TECHNIQUE: 2D digital imaging was performed. FINDINGS: No acute fracture or dislocation is seen. There has been previous talocalcaneal fusion. Degenerative changes are seen at the talonavicular and calcaneocuboid joints. IMPRESSION: Degenerative and postsurgical changes. No acute abnormality.
--- NOTE | 2019-07-28 10:29 | DI.VRAD_ITS ---
PROCEDURE INFORMATION: Exam: XR Left Foot Complete Exam date and time: 07/28/2019 9:53 AM Age: 64 years old Clinical history: Pain; Foot; Prior surgery; Surgery date: 6+ months; Surgery type: Surgery on left calcaneus in 1995. ; Additional info: Left base of 2nd toe pain. No injury/ trauma. HX of gout. TECHNIQUE: Imaging protocol: XR Left foot. Views: 3 or more views. COMPARISON: No relevant prior studies available. FINDINGS: Bones/joints: Screw between the talus and calcaneus. Fusion of the talocalcaneal joint. Degenerative changes in the tarsal bones There is no evidence of acute fracture.There is no evidence of malalignment or dislocation. Soft tissues: Normal. IMPRESSION: 1. Screw between the talus and calcaneus. Fusion of the talocalcaneal joint. 2. There is no evidence of acute fracture.There is no evidence of malalignment or dislocation. Dictated and Authenticated by: Ben Nicholson MD. Ordering:JAMAL Mast MD
== END 2019-07-28 10:13 | disposition home or self-care (01) ==
PROVIDERS: Emergency Provider Physician Assistant; PCP Family Medicine
DX: M10.9 Gout, unspecified (principal); E11.9 Type 2 diabetes mellitus without complications; Z79.84 Long term (current) use of oral hypoglycemic drugs; I10 Essential (primary) hypertension
CPT/HCPCS: 99283; 73630

== ENCOUNTER 2019-09-26 14:16 | Outpatient (CLI) | payer MEDICARE, SELFPAY ==
--- NOTE | 2019-09-26 11:54 | DI.RAD_ITS ---
EXAM: XR SHOULDER LT COMPLETE 2+V INDICATION: FELL A WEEK AGO ONTO L SHOULDER M25.512 PAIN LT SHOULDER, R52 PAIN. COMPARISON: No exams were available for comparison TECHNIQUE: 2D digital imaging was performed. FINDINGS: There are mild degenerative changes at the acromioclavicular joint and the glenohumeral joint. No ac [place] fracture or dislocation is present. The soft tissues are unremarkable. Prior cervical spine jorden huey. IMPRESSION: Mild degenerative changes in the shoulder.
[2019-09-26 12:34] LABS: Abs Immature Grans 0.02 k/cumm (0.0-0.09); Absolute Basophil Count 0.01 k/cumm (0.0-0.2); Absolute Eosinophil Count 0.15 k/cumm (0.0-0.7); Absolute Lymphocyte Count 2.08 k/cumm (1.2-3.4); Absolute Monocyte Count 0.65 k/cumm (0.11-0.7); Absolute Neutrophil Count 4.27 k/cumm (1.2-6.7); Basophils % 0.1; Eosinophils % 2.1; HCT 36.5 % (40.0-50.0); HGB 12.3 g/dL (13.5-17.5); Immature Grans % 0.3 %; Mean Corp. HGB Concentration 33.7 g/dL (32.0-36.0); Mean Corpuscular Hemoglobin 31.3 pg (27.0-33.0); Mean Corpuscular Volume 92.9 fL (80-95); Mean Platelet Volume 9.6 fL (8.0-11.0); Monocytes % 9.1; Neutrophils % 59.4; Platelet Count 186 x1000/uL (130-400); RBC 3.93 m/cumm (4.50-6.00); RBC Distribution Width 13.1 % (11.8-14.1); White Blood Cell Count 7.18 k/cumm (4.4-10.8)
[2019-09-26 13:32] LABS: ALT 22 U/L (16-63); AST 19 U/L (15-37); Albumin 4.4 g/dL (3.4-5.0); Alkaline Phosphatase 101 U/L (46-116); Anion Gap 8.9 mmol/L (3-11); BUN 36 mg/dL (7-18); Bilirubin, Total 0.2 mg/dL (0.2-1.0); CO2 27.1 mmol/L (21.0-32.0); CREATININE 1.53 mg/dL (0.70-1.30); Calcium 9.4 mg/dL (8.5-10.1); Chloride 102 mmol/L (98-107); Estimated GFR 46.05 (mL/min/1.73m2); Glucose 84 mg/dL (74-106); Potassium 4.7 mmol/L (3.5-5.1); Sodium 138 mmol/L (136-145)
== END 2019-09-26 14:36 ==
PROVIDERS: PCP Family Medicine; Visit Provider Internal Medicine
DX: M25.512 Pain in left shoulder (principal); M19.012 Primary osteoarthritis, left shoulder; R50.9 Fever, unspecified
CPT/HCPCS: 36415; 80053; 73030; 85025

== ENCOUNTER → 2019-09-27 10:56 | Outpatient (BNVA) | payer MEDICARE, SELFPAY | PROVIDERS: PCP Family Medicine; Referring Provider Family Medicine; Visit Provider Student in an Organized Health Care Education/Training Program | DX: S46.112A Strain of muscle, fascia and tendon of long head of biceps, left arm, initial encounter (principal); W01.0XXA Fall on same level from slipping, tripping and stumbling without subsequent striking against object, initial encounter; M25.512 Pain in left shoulder | CPT/HCPCS: 99214 ==

== ENCOUNTER → 2019-10-18 11:26 | Outpatient (BNVA) | payer MEDICARE, SELFPAY | PROVIDERS: PCP Family Medicine; Referring Provider Family Medicine; Visit Provider Student in an Organized Health Care Education/Training Program | DX: S46.112D Strain of muscle, fascia and tendon of long head of biceps, left arm, subsequent encounter (principal); X58.XXXD Exposure to other specified factors, subsequent encounter; M75.82 Other shoulder lesions, left shoulder | CPT/HCPCS: 20610; 99213; J1040 ==

== ENCOUNTER → 2020-01-04 10:48 | Outpatient (BNVA) | payer MEDICARE, SELFPAY | PROVIDERS: PCP Family Medicine; Referring Provider Family Medicine; Visit Provider Student in an Organized Health Care Education/Training Program | DX: S46.119D Strain of muscle, fascia and tendon of long head of biceps, unspecified arm, subsequent encounter; X58.XXXD Exposure to other specified factors, subsequent encounter; M75.82 Other shoulder lesions, left shoulder; E11.9 Type 2 diabetes mellitus without complications; I10 Essential (primary) hypertension; Z79.84 Long term (current) use of oral hypoglycemic drugs | CPT/HCPCS: 99213 ==

== ENCOUNTER 2020-03-05 01:14 | Outpatient (CLI) | payer MEDICARE, SELFPAY ==
[2020-03-05 12:42] LABS: HCT 33.2 % (40.0-50.0); HGB 11.3 g/dL (13.5-17.5); Mean Corpuscular Hemoglobin 31.8 pg (27.0-33.0); Mean Corpuscular Volume 93.5 fL (80-95); Mean Platelet Volume 9.7 fL (8.0-11.0); Platelet Count 152 x1000/uL (130-400); RBC 3.55 m/cumm (4.50-6.00); RBC Distribution Width 12.8 % (11.8-14.1); White Blood Cell Count 6.41 k/cumm (4.4-10.8)
[2020-03-05 14:03] LABS: Anion Gap 10.8 mmol/L (3-11); BUN 50 mg/dL (7-18); CO2 24.2 mmol/L (21.0-32.0); CREATININE 2.06 mg/dL (0.70-1.30); Calcium 9.3 mg/dL (8.5-10.1); Chloride 99 mmol/L (98-107); Estimated GFR 32.67 (mL/min/1.73m2); Glucose 147 mg/dL (74-106); Potassium 5.4 mmol/L (3.5-5.1); Sodium 134 mmol/L (136-145)
== END 2020-03-05 01:34 ==
PROVIDERS: PCP Family Medicine; Visit Provider Family Medicine
DX: D64.9 Anemia, unspecified (principal); I10 Essential (primary) hypertension
CPT/HCPCS: 36415; 80048; 85027

== ENCOUNTER 2020-03-28 01:56 | Outpatient (CLI) | payer MEDICARE, SELFPAY ==
[2020-03-28 08:48] LABS: Hemoglobin A1C 9.9 % (3.8-5.6)
[2020-03-28 09:05] LABS: Anion Gap 9.4 mmol/L (3-11); BUN 25 mg/dL (7-18); CO2 26.6 mmol/L (21.0-32.0); CREATININE 1.48 mg/dL (0.70-1.30); Calcium 9.1 mg/dL (8.5-10.1); Chloride 95 mmol/L (98-107); Glucose 408 mg/dL (74-106); Potassium 4.4 mmol/L (3.5-5.1); Sodium 131 mmol/L (136-145)
== END 2020-03-28 02:16 ==
PROVIDERS: PCP Family Medicine; Visit Provider Family Medicine
DX: I10 Essential (primary) hypertension (principal); E11.9 Type 2 diabetes mellitus without complications
CPT/HCPCS: 36415; 80048; 83036

== ENCOUNTER 2020-04-18 03:13 | Outpatient (CLI) | payer MEDICARE, SELFPAY ==
[2020-04-18 09:17] LABS: Anion Gap 7.5 mmol/L (3-11); BUN 22 mg/dL (7-18); CO2 26.5 mmol/L (21.0-32.0); CREATININE 1.48 mg/dL (0.70-1.30); Chloride 97 mmol/L (98-107); Glucose 421 mg/dL (74-106); Potassium 5.3 mmol/L (3.5-5.1); Sodium 131 mmol/L (136-145)
== END 2020-04-18 03:33 ==
PROVIDERS: PCP Family Medicine; Visit Provider Family Medicine
DX: I10 Essential (primary) hypertension (principal)
CPT/HCPCS: 36415; 80048

== ENCOUNTER 2020-05-26 01:41 | Outpatient (CLI) | payer MEDICARE, SELFPAY ==
[2020-05-26 09:08] LABS: Hemoglobin A1C 8.5 % (<5.7)
[2020-05-26 09:30] LABS: Anion Gap 6.8 mmol/L (3-11); BUN 31 mg/dL (7-18); CO2 27.2 mmol/L (21.0-32.0); CREATININE 1.28 mg/dL (0.70-1.30); Chloride 98 mmol/L (98-107); Glucose 272 mg/dL (74-106); Potassium 4.6 mmol/L (3.5-5.1); Sodium 132 mmol/L (136-145)
== END 2020-05-26 02:01 ==
PROVIDERS: PCP Family Medicine; Visit Provider Family Medicine
DX: E11.9 Type 2 diabetes mellitus without complications (principal); I10 Essential (primary) hypertension
CPT/HCPCS: 36415; 80048; 83036

== ENCOUNTER 2020-08-14 01:48 | Outpatient (CLI) | payer MEDICARE, SELFPAY ==
[2020-08-14 08:35] LABS: HCT 39.4 % (40.0-50.0); HGB 13.3 g/dL (13.5-17.5); MCH 31.4 pg (27.0-33.0); MCHC 33.8 % (32.0-36.0); MCV 93.1 fL (80-95); MPV 10.4 fL (8.0-11.0); Platelet Count 146 10^3/uL (130-400); RBC 4.23 10^6/uL (4.36-5.78); RDW 12.9 % (11.8-14.1); RDW-SD 44.2 fL
[2020-08-14 09:33] LABS: ALT 30 U/L (16-63); AST 23 U/L (15-37); Albumin 4.1 g/dL (3.4-5.0); Alkaline Phosphatase 139 U/L (46-116); BUN 22 mg/dL (7-18); Bilirubin, Total 0.3 mg/dL (0.2-1.0); CREATININE 1.39 mg/dL (0.70-1.30); Calcium 9.6 mg/dL (8.5-10.1); Chloride 100 mmol/L (98-107); Estimated GFR 51.28 (mL/min/1.73m2); Glucose 221 mg/dL (74-106); Sodium 136 mmol/L (136-145); Total Protein 6.8 g/dL (6.4-8.2); Uric Acid 3.2 mg/dL (3.5-7.2)
[2020-08-14 09:50] LABS: Calculated LDL 103 mg/dL (<100); Cholesterol 191 mg/dL (<200); HDL Cholesterol 55 mg/dL (40-60); Triglyceride 166 mg/dL (<150)
== END 2020-08-14 02:08 ==
PROVIDERS: PCP Family Medicine; Visit Provider Family Medicine
DX: N18.30 Chronic kidney disease, stage 3 unspecified (principal); E78.5 Hyperlipidemia, unspecified; I10 Essential (primary) hypertension; E11.9 Type 2 diabetes mellitus without complications; M1A.0720 Idiopathic chronic gout, left ankle and foot, without tophus (tophi); M47.12 Other spondylosis with myelopathy, cervical region; Z12.5 Encounter for screening for malignant neoplasm of prostate; N40.1 Benign prostatic hyperplasia with lower urinary tract symptoms; Z80.42 Family history of malignant neoplasm of prostate
CPT/HCPCS: 36415; 80053; 80061; 84153; 85027; 84550

== ENCOUNTER 2020-08-18 13:04 | Outpatient (REF) | payer MEDICARE, SELFPAY ==
[2020-08-18 14:28] LABS: COMMENT (LAB VIEW ONLY) 80.35 mg/dL; Microalb ug/mg Crea 26.8 ug/mg Cr
== END 2020-08-18 13:24 ==
LOC: LBN 13:04
PROVIDERS: PCP Family Medicine; Visit Provider Family Medicine
DX: Z00.00 Encounter for general adult medical examination without abnormal findings (principal); I12.9 Hypertensive chronic kidney disease with stage 1 through stage 4 chronic kidney disease, or unspecified chronic kidney disease; N18.30 Chronic kidney disease, stage 3 unspecified; E78.5 Hyperlipidemia, unspecified; E11.22 Type 2 diabetes mellitus with diabetic chronic kidney disease; M1A.0720 Idiopathic chronic gout, left ankle and foot, without tophus (tophi); E11.9 Type 2 diabetes mellitus without complications; I10 Essential (primary) hypertension
CPT/HCPCS: 82043; 82570

== ENCOUNTER 2020-09-10 09:42 | Outpatient (REF) | payer OTHER, SELFPAY ==
[2020-09-10 14:35] LABS: Hemoglobin A1C 8.6 % (<5.7)
[2020-09-10 14:49] LABS: Vitamin B12 812 pg/mL (193-986)
== END 2020-09-10 10:02 ==
LOC: NCHCN 09:42
PROVIDERS: PCP Family Medicine; Visit Provider Family Medicine
DX: D64.9 Anemia, unspecified (principal); R73.9 Hyperglycemia, unspecified
CPT/HCPCS: 82607; 83036

== ENCOUNTER 2020-10-09 14:28 | Outpatient (REF) | payer OTHER, SELFPAY ==
[2020-10-09 14:08] LABS: Anion Gap 6.3 mmol/L (3-11); BUN 35 mg/dL (7-18); CO2 29.7 mmol/L (21.0-32.0); CREATININE 1.7 mg/dL (0.70-1.30); Calcium 10.1 mg/dL (8.5-10.1); Chloride 100 mmol/L (98-107); Estimated GFR 40.65 (mL/min/1.73m2); Glucose 166 mg/dL (74-106); Potassium 5.9 mmol/L (3.5-5.1); Sodium 136 mmol/L (136-145)
== END 2020-10-09 14:29 | disposition home or self-care (01) ==
LOC: LBN 14:28
PROVIDERS: PCP Nurse Practitioner Family; Visit Provider Nurse Practitioner Family
DX: E11.9 Type 2 diabetes mellitus without complications (principal)
CPT/HCPCS: 80048

== ENCOUNTER 2020-10-16 03:22 | Outpatient (CLI) | payer OTHER, SELFPAY ==
[2020-10-16 10:16] LABS: Anion Gap 8.3 mmol/L (3-11); BUN 42 mg/dL (7-18); CO2 25.7 mmol/L (21.0-32.0); CREATININE 1.8 mg/dL (0.70-1.30); Calcium 9.3 mg/dL (8.5-10.1); Chloride 100 mmol/L (98-107); Estimated GFR 38.06 (mL/min/1.73m2); Glucose 175 mg/dL (74-106); Potassium 5.4 mmol/L (3.5-5.1); Sodium 134 mmol/L (136-145)
== END 2020-10-16 03:23 | disposition home or self-care (01) ==
LOC: LBO 03:22
PROVIDERS: PCP Nurse Practitioner Family; Visit Provider Nurse Practitioner Family
DX: N18.9 Chronic kidney disease, unspecified (principal)
CPT/HCPCS: 36415; 80048

== ENCOUNTER 2020-11-13 16:37 | Outpatient (REF) | payer OTHER, SELFPAY ==
[2020-11-13 16:43] LABS: Anion Gap 6.5 mmol/L (3-11); BUN 42 mg/dL (7-18); CO2 26.5 mmol/L (21.0-32.0); CREATININE 1.5 mg/dL (0.70-1.30); Calcium 9.8 mg/dL (8.5-10.1); Calculated LDL 20 mg/dL (<100); Chloride 103 mmol/L (98-107); Cholesterol 108 mg/dL (<200); Estimated GFR 46.97 (mL/min/1.73m2); Glucose 135 mg/dL (74-106); HDL Cholesterol 63 mg/dL (40-60); Potassium 5.6 mmol/L (3.5-5.1); Sodium 136 mmol/L (136-145); Triglyceride 127 mg/dL (<150)
== END 2020-11-13 16:38 | disposition home or self-care (01) ==
LOC: LBN 16:37
PROVIDERS: PCP Nurse Practitioner Family; Visit Provider Nurse Practitioner Family
DX: E11.9 Type 2 diabetes mellitus without complications (principal)
CPT/HCPCS: 80048; 80061

== ENCOUNTER 2020-11-25 04:31 | Outpatient (CLI) | payer OTHER, SELFPAY ==
--- NOTE | 2020-11-25 13:00 | NS.NUTBLAN_ITS ---
Jadon was referred to medical nutrition therapy for continuous glucose monitoring device application and diabetes self management education. Most recent A1C: 8.6% (09/11/20), home DM meds metformin 1000 mg qd. Jadon reports not checking blood sugars as unable to get blood sample. CGM ([place] 14 day) applied today, along with device education and programming. Target Range set for 80-180 mg/dl. Next sensor to be applied by Jadon in 14 days. Diet recall indicates erratic meal times and inconsistent intakes of carbohydrates at meals. Typical meals include corn flakes with banana and chicken with vegetables at night. Typically skips lunch. Reviewed importance of balanced meals for glycemic control to reduce excessive glucose liver output in response to erratic meal schedule. Provided education material and lists in order to follow [id number] kcal meal plan with 50-60 g carbs at B, L and D. Emphasized need to balance carbohydrates with lean protein and healthy fats. Encouraged carbs consumed to be whole grain and fiber rich. Plan: Jadon to swipe CGM 4 times daily, will keep device charged and return for follow up appt. on 12/11/20 at 11 am for Ambulatory Glucose Profile to assess glycemic variability and patterns.
== END 2020-11-25 04:32 | disposition home or self-care (01) ==
LOC: DS 04:31
PROVIDERS: PCP Nurse Practitioner Family; Visit Provider Dietitian, Registered
DX: E11.9 Type 2 diabetes mellitus without complications (principal); Z79.84 Long term (current) use of oral hypoglycemic drugs; Z71.3 Dietary counseling and surveillance
CPT/HCPCS: 97802

== ENCOUNTER 2020-12-05 02:25 | Outpatient (CLI) | payer OTHER, SELFPAY ==
[2020-12-05 10:56] LABS: BUN 39 mg/dL (7-18); CREATININE 1.6 mg/dL (0.70-1.30); Calcium 9.6 mg/dL (8.5-10.1); Chloride 103 mmol/L (98-107); Glucose 79 mg/dL (74-106); Potassium 4.7 mmol/L (3.5-5.1); Sodium 140 mmol/L (136-145)
== END 2020-12-05 02:26 | disposition home or self-care (01) ==
LOC: LBO 02:25
PROVIDERS: PCP Nurse Practitioner Family; Visit Provider Nurse Practitioner Family
DX: E87.5 Hyperkalemia (principal); N18.9 Chronic kidney disease, unspecified
CPT/HCPCS: 36415; 80048

== ENCOUNTER 2020-12-11 04:10 | Outpatient (CLI) | payer OTHER, SELFPAY ==
--- NOTE | 2020-12-11 11:00 | NS.NUTBLAN_ITS ---
Jadon returns for Medical Nutrition Therapy for diabetes self management education. He has used his [place] 14 continous glucose monitor for last month and brought in his reader for data analysis. DM meds: glipizide 10 mg BID, Meformin 1000 mg qd. Jardiance d/c due to kidney function tests. A1c: 8.6% (09/10/20) Diet record indicates that he follows consistent carb diet with goal of 50-60 g carbs at meals. Ambulatory Glucose Profile indicates average blood sugar of 128 mg/dl, with 81% of time in target range (70-180 mg/dl), no very low blood sugars detected but has had several low blood sugars (54-69 mg/dl) at 3% of time. 3% of time with very high blood sugars (>250 mg/dl), 13% high blood sugars (181-250 mg/dl). Pattern analysis indicates most elevated blood sugars after breakfast. Reviewed typical breakfasts. It is evident by report that 60 g carb is too much with current medication dosing. Recommend reducing breakfast carbohydrate intake to no more than 30 grams with emphasis on lean protein and healthy fats, along with complex carbs with fiber to help regulate glycemic response to breakfast. Post prandial blood sugars after lunch and dinner are mostly within range. Hypoglycemic events occurred when meal missed. At this time, Jadon continues to have elevated blood sugars that will contribute to complications associated with poor glycemic control. Suspect with reduction of carbs at breakfast, will have improved glycemic control. Plan: Jadon will reduce carb intake at breakfast, recommend he bring CGM report to PCP next week for review. Follow up appt. 01/06/21 at 11 am.
== END 2020-12-11 04:11 | disposition home or self-care (01) ==
LOC: DS 04:11
PROVIDERS: PCP Nurse Practitioner Family; Visit Provider Dietitian, Registered
DX: E11.65 Type 2 diabetes mellitus with hyperglycemia (principal); Z79.84 Long term (current) use of oral hypoglycemic drugs; Z71.3 Dietary counseling and surveillance
CPT/HCPCS: 97803

== ENCOUNTER 2020-12-24 04:43 | Outpatient (CLI) | payer OTHER, SELFPAY ==
[2020-12-24 12:38] LABS: ALT 45 U/L (16-63); AST 28 U/L (15-37); Alkaline Phosphatase 111 U/L (46-116); Anion Gap 7.4 mmol/L (3-11); BUN 40 mg/dL (7-18); Bilirubin, Total 0.2 mg/dL (0.2-1.0); CO2 29.6 mmol/L (21.0-32.0); CREATININE 1.4 mg/dL (0.70-1.30); Calcium 9.6 mg/dL (8.5-10.1); Chloride 102 mmol/L (98-107); Estimated GFR 50.86 (mL/min/1.73m2); Glucose 122 mg/dL (74-106); Sodium 139 mmol/L (136-145); Total Protein 6.6 g/dL (6.4-8.2)
== END 2020-12-24 04:44 | disposition home or self-care (01) ==
LOC: LBO 04:43
PROVIDERS: PCP Nurse Practitioner Family; Visit Provider Nurse Practitioner Family
DX: E11.9 Type 2 diabetes mellitus without complications (principal)
CPT/HCPCS: 36415; 80053; 83036

== ENCOUNTER 2020-12-26 17:03 | Outpatient (REF) | payer OTHER, SELFPAY ==
[2020-12-26 22:09] LABS: Creatine Kinase 267 U/L (39-308); Magnesium 1.7 mg/dL (1.8-2.4)
== END 2020-12-26 17:04 | disposition home or self-care (01) ==
LOC: LBN 17:03
PROVIDERS: PCP Nurse Practitioner Family; Visit Provider Nurse Practitioner Family
DX: R25.2 Cramp and spasm (principal)
CPT/HCPCS: 82550; 83735

== ENCOUNTER 2021-01-05 11:24 | Outpatient (CLI) | payer OTHER, SELFPAY ==
--- NOTE | 2021-01-05 | DI.RAD_ITS ---
Exam(s) XR FOOT LT COMPLETE EXAM: XR FOOT LT COMPLETE CLINICAL HISTORY: LT FOOT PAIN, M79.672; FOREIGN BODY GRANULOMA OF SKIN AND SUBCU TIS , L92.3. TECHNIQUE: 2D digital imaging was performed. COMPARISON: CR,XR XR FOOT LT COMPLETE from 07/28/2019 FINDINGS: Again noted is screw fusion of the subtalar joint. Multiple tiny radiopaque densities are noted post eriorly, unchanged. No fractures evident. No diastasis of the Lisfranc joint. Prominent accessory ossicle is again noted lateral to the cuboid bone. There is no radiographic evidence of osteomyeliti s. Degenerative change in the calcaneocuboid joint again noted on its lateral aspect including opposing osteophytes. IMPRESSION: As above, but with very little if any significant radiographic change compared to 07/28/2019. DATA REPOSITORY: RADIATION DOSE DELIVERED:
== END 2021-01-05 11:44 ==
PROVIDERS: PCP Nurse Practitioner Family; Visit Provider Nurse Practitioner Family
DX: M79.672 Pain in left foot (principal); Z98.1 Arthrodesis status; L92.3 Foreign body granuloma of the skin and subcutaneous tissue
CPT/HCPCS: 73630

== ENCOUNTER 2021-01-06 03:42 | Outpatient (CLI) | payer OTHER, SELFPAY ==
--- NOTE | 2021-01-06 14:00 | NS.NUTBLAN_ITS ---
Jadon returns for medical nutrition therapy for diabetes self management education. Jadon reports DM medications have been changed: only taking metformin 500 mg AM, 1000 mg PM. No longer taking glipizide or jardiance as was having hypoglycemic events. Jadon is concerned that he feels weak and has lost 10 lbs since starting lower carb intake. Session today included finding foods that Jadon can add to help increase calories but no affect glycemic control. Jadon to start adding 500 calories to daily food intake by adding cheese, meats, glucerna shakes to snacks and meals. Also, discussed how often fatigue can occur once blood sugars normalize as body needs to get used to better glycemic control. Ambulatory Glucose Profile indicates in last 14 days the average blood sugar has been 147mg/dl with 81% of time in range (70-180 mg/dl), no hypoglycemic events, some high blood sugars (181-250 mg/dl) but only 17% of time which is considered acceptable in view of glycemic variability/control. Metformin and diet providing good glycemic control at this time. Encouraged Jaodn to continue to follow DM meds per MD and to continue lower carb diet with increased caloric intake from fats, protein, protein shakes, protein bars and glucerna shakes. No follow up planned at this time. Will contact medical writer chris.
== END 2021-01-06 03:43 | disposition home or self-care (01) ==
LOC: DS 03:42
PROVIDERS: PCP Nurse Practitioner Family; Visit Provider Dietitian, Registered
DX: E11.9 Type 2 diabetes mellitus without complications (principal); Z79.84 Long term (current) use of oral hypoglycemic drugs; Z71.3 Dietary counseling and surveillance
CPT/HCPCS: 97803

== ENCOUNTER 2021-01-06 09:04 | Emergency (ER) | payer OTHER, SELFPAY ==
[2021-01-06 09:09] VITALS: BP 195/83; PULSE 63; RESP 20; TEMP 36.6; O2SAT 100
--- NOTE | 2021-01-06 09:21 | W.ED.GENAD ---
Discharge Plan Disposition Patient Disposition: HOME Condition: Good Discharge Details Clinical Impression: Cramp in muscle Primary Care Provider: Ashley Ocasio ED Provider: Shakir Aleman Home Meds and New Rx's Prescriptions: Continued (DME) FreeStyle Lite Strips strip 1 ea Miscellaneous DAILY Qty: 100 RF: 5 (DME) FreeStyle Austin 14 Day Williams Misc See Rx Instructions .ROUTE .MEDSUPPLY Qty: 1 RF: 4 (DME) FreeStyle [place] 14 Day Sensor Kit See Rx Instructions .ROUTE .MEDSUPPLY Qty: 6 RF: 4 celecoxib [Celebrex] 100 mg capsule 100 mg PO DAILY PRN (Reason: pain) Qty: 60 RF: 0 magnesium oxide 500 mg tablet 500 mg PO BID Qty: 60 RF: 0 lorazepam 1 mg tablet 1 mg PO QHS PRN (Reason: sleep) Qty: 30 RF: 0 CENTRUM SILVER TABLET 1 EACH tablet 1 tab PO DAILY RF: 0 (DME) blood-glucose meter [FreeStyle Lite Meter] 1 EACH kit 1 ea Miscellaneous DAILY Qty: 1 RF: 0 (DME) lancets [FreeStyle Lancets] 28 gauge misc 1 ea Miscellaneous DAILY Qty: 100 RF: 5 allopurinol 300 mg tablet 300 mg PO DAILY Qty: 90 RF: 4 amitriptyline 10 mg tablet 10 mg PO HS Qty: 90 RF: 4 amlodipine 5 mg tablet 5 mg PO DAILY Qty: 90 RF: 4 tamsulosin 0.4 mg capsule 0.8 mg PO DAILY Qty: 180 RF: 4 metformin 1,000 mg tablet 500 - 1,000 mg PO BID Qty: 135 RF: 4 doxepin 3 mg tablet 3 mg PO QHS PRN (Reason: sleep) Qty: 60 RF: 0 Discharge Instructions Instructions: Leg Cramps (ED) Referrals: Ashley Ocasio NP [Primary Care Provider] - Medical Decision Making 65-year-old male with a past medical history of obesity pain, type 2 diabetes, hypertension, gout, high cholesterol, Raynaud's syndrome, BPH, presents today for evaluation of leg cramps. Patient states that for the last month he has had leg cramps. Cramps initially began about a month or 2 ago when he was on statin medications. He switch between 2 different statin meds, and eventually stopped all statin medications 1 month ago. Shortly after this he notes that he developed generalized regular leg cramping. Cramps begin only at night, they start in his feet traveled to his calves. He is able to work them out but then they come back later in the evening. He drinks at least 64 ounces of water per day. He denies any excessive caffeine intake. He denies any cramps during the day. Historically he used to get cramps after a long day of work however he is retired and he denies any activity like that now. No other new medication at this time. Also of note the patient has recently started a cutdown of his regular lorazepam. He started this when his cramps began. He has gradually been reducing his dose over the last 2 to 3 weeks. Normally he would take it at night, now he is down to 0.5 mg per night when initially he was taking 2 mg nightly. Patient has no other complaints at this time. No other modifying factors. Exam demonstrates a well-appearing male, range of motion for his tendons and ligaments in general appears to be slightly limited, normal high tensile level at baseline. Patient is not overly flexible. Taking all components into consideration I suspect that the patient's cramps are likely related to his regular more tense state, combined with his cutdown of his chronic benzodiazepine, especially as the symptoms only occur at night which was when he would normally take his regular benzo dose. We will get basic screening labs to make sure his potassium calcium and magnesium levels are all normal. Of note he is taking a regular magnesium supplement already. Will monitor closely and reassess 10:33 AM Patient's laboratory work-up is returned unremarkable, symptoms are likely due to his chronic tensile nature in conjunction with his withdrawal from the benzodiazepines. Discussed the plan with him for close follow-up with his PCP, discussion for new plan with the benzos, I spent time with the patient showing him the stretches that I would recommend for his legs and calf. Discussed red flags which return. I have extensively reviewed the treatment plan and discharge instructions with the patient. I have addressed all patient concerns at this time. The patient was made aware of what symptoms to monitor for that would warrant a return to the emergency department. Discussed the plan with the patient, they demonstrate verbal understanding and agreement with our assessment and plan at this time. The documentation in this chart was dictated using [email or web address] dictation software. Please excuse any dictation errors. HPI General Date/Time Provider Initiated Documentation: 01/06/21 09:04. HPI Narrative: 65-year-old male with a past medical history of obesity pain, type 2 diabetes, hypertension, gout, high cholesterol, Raynaud's syndrome, BPH, presents today for evaluation of leg cramps. Patient states that for the last month he has had leg cramps. Cramps initially began about a month or 2 ago when he was on statin medications. He switch between 2 different statin meds, and eventually stopped all statin medications 1 month ago. Shortly after this he notes that he developed generalized regular leg cramping. Cramps begin only at night, they start in his feet traveled to his calves. He is able to work them out but then they come back later in the evening. He drinks at least 64 ounces of water per day. He denies any excessive caffeine intake. He denies any cramps during the day. Historically he used to get cramps after a long day of work however he is retired and he denies any activity like that now. No other new medication at this time. Also of note the patient has recently started a cutdown of his regular lorazepam. He started this when his cramps began. He has gradually been reducing his dose over the last 2 to 3 weeks. Normally he would take it at night, now he is down to 0.5 mg per night when initially he was taking 2 mg nightly. Patient has no other complaints at this time. No other modifying factors. Related Data Home Medications Medication Instructions Recorded Confirmed Centrum Silver Tablet 1 tab PO DAILY 12/13/12 12/26/20 blood-glucose meter [FreeStyle #1 kit 01/12/17 12/26/20 Lite Meter] blood sugar diagnostic #100 strip 07/07/18 12/26/20 lancets 28 gauge #100 ea 07/11/18 12/26/20 allopurinol 300 mg tablet 300 mg PO DAILY #90 tab-cap 08/05/20 01/06/21 amitriptyline 10 mg tablet 10 mg PO HS #90 tab 08/27/20 01/06/21 flash glucose scanning reader #1 ea 10/09/20 12/26/20 flash glucose sensor #6 ea 10/09/20 12/26/20 amlodipine 5 mg tablet 5 mg PO DAILY #90 tab 10/20/20 01/06/21 tamsulosin 0.4 mg capsule 0.8 mg PO DAILY #180 cap 11/26/20 12/26/20 lorazepam 1 mg tablet 1 mg PO QHS PRN #30 tab 12/18/20 01/06/21 metformin 1,000 mg tablet 500 - 1,000 mg PO BID #135 tab 12/24/20 01/06/21 celecoxib 100 mg capsule 100 mg PO DAILY PRN #60 cap 12/26/20 12/26/20 magnesium oxide 500 mg tablet 500 mg PO BID #60 tab 12/30/20 01/06/21 doxepin 3 mg tablet 3 mg PO QHS PRN #60 tab 12/31/20 Previous Rx's Medication Instructions Recorded blood sugar diagnostic #100 strip 07/07/18 lancets 28 gauge #100 ea 07/11/18 allopurinol 300 mg tablet 300 mg PO DAILY #90 tab-cap 08/05/20 amitriptyline 10 mg tablet 10 mg PO HS #90 tab 08/27/20 flash glucose scanning reader #1 ea 10/09/20 flash glucose sensor #6 ea 10/09/20 amlodipine 5 mg tablet 5 mg PO DAILY #90 tab 10/20/20 tamsulosin 0.4 mg capsule 0.8 mg PO DAILY #180 cap 11/26/20 lorazepam 1 mg tablet 1 mg PO QHS PRN #30 tab 12/18/20 metformin 1,000 mg tablet 500 - 1,000 mg PO BID #135 tab 12/24/20 celecoxib 100 mg capsule 100 mg PO DAILY PRN #60 cap 12/26/20 magnesium oxide 500 mg tablet 500 mg PO BID #60 tab 12/30/20 doxepin 3 mg tablet 3 mg PO QHS PRN #60 tab 12/31/20 Allergies Allergy/AdvReac Type Severity Reaction Status Date / Time acetaminophen [From Tylenol] Allergy Intermediate PT. STATES Verified 01/06/21 09:21 MEDICATION MAKES HIS HEART RACE. latex Allergy Intermediate rash, Verified 01/06/21 09:21 dizziness zolpidem AdvReac CONFUSION Verified 01/06/21 09:21 General Stated Complaint: GenMedical WERO: 3 Review of Systems All systems reviewed & are unremarkable except as noted in HPI and below PFSH Medical History BPH w urinary obs/LUTS Chronic kidney disease Depressive disorder Essential hypertension Generalized osteoarthritis GERD (gastroesophageal reflux disease) Gout Hyperlipidemia Insomnia Raynauds syndrome Tubular adenoma of colon Type 2 diabetes mellitus Surgical History History of esophagogastroduodenoscopy (EGD) S/P cervical discectomy (03/31/18) C5-C6, C6-C7 with fusion S/P colonoscopy S/P ORIF (open reduction internal fixation) fracture S/P right rotator cuff repair (01/24/18) Status post Emma fundoplication Family History Mother , age 83 Essential hypertension Stroke Diabetes Father , age 65 Lung cancer Sister No problems noted. Brother Asthma Brother No problems noted. Brother No problems noted. Daughter Essential hypertension Daughter Essential hypertension Maternal Grandfather No problems noted. Maternal Grandmother No problems noted. Paternal Grandfather No problems noted. Paternal Grandmother No problems noted. Social History Smoking/Tobacco Use Status: Former Tobacco Use tobacco type: cigarettes Quit Date: 08/22/89 Smoking risk assessment performed?: Yes Alcohol Intake: former Drug use: Never Substance use type: does not use Caregiver/Support person: No Household members: spouse Communication Needs: None Do you need help understanding health information?: Rarely current occupation: none Pets and animals: Yes Pets and animals: dog(s) Sexually active: No Do you think of yourself as: straight/heterosexual Current gender identity: male What is your relationship status?: How often do you talk on the phone with friends or family?: twice per week How often do you get together with friends or relatives?: twice per week How often do you attend baptism or muslim services?: decline to answer Do you belong to any clubs or organized social groups?: no Panel score (0-1 are the most socially isolated patients): 2 What type of physical activity do you participate in: other 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 3.ENT: Atraumatic external nose and ears. Moist MM. Neck: Symmetric, trachea midline, No thyromegaly. 4.CVS: +S1/S2, No murmurs or gallops. Peripheral pulses 2+ and equal in all extremities. Brisk capillary refill in all extremities. 5.RESP: Unlabored respiratory effort. Clear to auscultation bilaterally. No wheezes rales or rhonchi 6.GI: Soft, Nontender/Nondistended, No hepatosplenomegaly. No guarding or rebound. 7.MSK: Normocephalic/Atraumatic, Extremities w/o deformity or ttp No cyanosis or clubbing, Normal movement of all extremities. Generalized range of motion is relatively limited. Patient seems to demonstrate tense muscles throughout. No active cramping now. Patient for example is only 2 dorsiflex 90 degrees at the ankle, and not greater. No clonus or hyperreflexia . 8.Skin: Warm, Dry. No rashes or lesions. 9.Neuro: project surveyor II-XII grossly intact. Sensation grossly intact, no focal neurologic deficits. 10.Psych: (AAO) x3. Appropriate mood and affect Course Vital Signs Vital signs: Vital Signs Temperature 36.6 C 01/06/21 09:09 Pulse 63 01/06/21 09:09 Respiratory Rate 20 01/06/21 09:09 Blood Pressure 195/83 H 01/06/21 09:09 Pulse Oximetry 100 01/06/21 09:09 Temperature 36.6 C 01/06/21 09:09 Temperature Source Skin 01/06/21 09:09 Pulse 63 01/06/21 09:09 Respiratory Rate 20 01/06/21 09:09 Blood Pressure 195/83 H 01/06/21 09:09 Blood Pressure Position Sitting 01/06/21 09:09 Pulse Oximetry 100 01/06/21 09:09 Oxygen Delivery Method Room Air 01/06/21 09:09 Oxygen Flow Rate 0 01/06/21 09:09 Pain Level 2 01/06/21 09:09
[2021-01-06 10:16] LABS: Anion Gap 7.8 mmol/L (3-11); BUN 37 mg/dL (7-18); CO2 31.2 mmol/L (21.0-32.0); CREATININE 1.3 mg/dL (0.70-1.30); Chloride 99 mmol/L (98-107); Glucose 157 mg/dL (74-106); Potassium 4.2 mmol/L (3.5-5.1); Sodium 138 mmol/L (136-145)
== END 2021-01-06 10:31 | disposition home or self-care (01) ==
PROVIDERS: Emergency Provider Student in an Organized Health Care Education/Training Program; PCP Nurse Practitioner Family
DX: R25.2 Cramp and spasm (principal)
CPT/HCPCS: 36415; 80048; 99283; 83735

== ENCOUNTER 2021-01-13 02:31 | Outpatient (CLI) | payer OTHER, SELFPAY ==
--- NOTE | 2021-01-13 07:00 | DI.CT_ITS ---
Exam(s) CT HEAD WO EXAM: CT HEAD WO CLINICAL HISTORY: Poor balance x 2mo, r26.89 abnormality of gait and mobility. TECHNIQUE: Imaging Protocol: Axial computed tomography images with coronal and sagittal reformatted images were created and reviewed COMPARISON: No exams were available for comparison FINDINGS: Ventricles and Extra axial spaces: Normal in size and morphology for the patient's age. Hemorrhage: None. Cerebral parenchyma: Normal. Mild atrophy. Midline shift: None. Brainstem/Cerebellum: Normal. Calvarium: Normal. Visualized Paranasal sinuses/Mastoids: Clear. Soft Tissues: Unremarkable. IMPRESSION: No acute intracranial process. RADIATION DOSE DELIVERED: 703.74mGy.cm Total DLP DATA REPOSITORY: All CT scans at this facility are submitted to the National Radiology Data Registry (NRDR) Dose Index Registry (DIR) with the [employer] ([employer]). RADIATION OPTIMIZATION: All CT scans at this facility use at least one of these dose optimization te chniques: automated exposure control; mA and/or kV adjustment per patient size (includes targeted exa ms where dose is matched to clinical indication); or iterative reconstruction.
== END 2021-01-13 02:51 ==
PROVIDERS: PCP Nurse Practitioner Family; Visit Provider Nurse Practitioner Family
DX: R26.89 Other abnormalities of gait and mobility (principal); G31.89 Other specified degenerative diseases of nervous system
CPT/HCPCS: 70450

== ENCOUNTER 2021-03-26 04:43 | Outpatient (CLI) | payer OTHER, SELFPAY ==
[2021-03-26 07:47] LABS: Hemoglobin A1C 7.5 % (<5.7)
--- NOTE | 2021-03-27 10:09 | W.DIABETESNO ---
Date of service: 03/27/21 Time of Service: 10:10 Diabetes Note NOTE: Spoke to Jadon on phone today. He wanted to discuss his frequent low blood sugars (<50 mg/dl) at night. He is using a Austin 2 continuous glucose monitor that alerts hypoglycemia. In last 5 days, has had 4 alerts around 3 am with blood sugars 40-55 mg/dl. Most recent A1C: 7.5%(03/26/21), up 0.5% in last 90 days. Current Dm meds: 10 mg glipizide BID, 1000 mg metformin BID. Jadon is following well balanced meals through out day, weight has been stable. Jadon reports getting message on voice mail yesterday from [employer] to continue with current Dm meds despite frequent hypoglycemia. Encouraged Jadon to call back and have clarified. Recommend reducing glipizide to 5 mg and metformin to 500 mg at PM to reduce risk of hypoglycemia. Continue with glipizide 10 mg, metformin 1000 mg AM. Continue with Austin 2 CGM and down load information and provide to PCP at next visit. Time Spent in Nutritional Counseling and Treatment: 10 min
== END 2021-03-26 04:44 | disposition home or self-care (01) ==
LOC: LBO 04:43
PROVIDERS: PCP Nurse Practitioner Family; Visit Provider Nurse Practitioner Family
DX: E11.9 Type 2 diabetes mellitus without complications (principal)
CPT/HCPCS: 36415; 83036

== ENCOUNTER 2021-04-01 02:58 | Outpatient (CLI) | payer OTHER, SELFPAY ==
--- NOTE | 2021-04-01 08:00 | DI.US_ITS ---
Exam(s) US HERNIA EXAM: US HERNIA CLINICAL HISTORY: Please confirm inguinal hernias, bilateral,K40.20. TECHNIQUE: Ultrasound was performed using standard protocol. COMPARISON: No exams were available for comparison FINDINGS: Sonographic assessment utilizing grayscale and color Doppler imaging was performed and targeted to th e area of clinical concern. There is a fatty containing right inguinal hernia with a neck measured at 1.4 cm. Fatty containing l eft inguinal hernia is also seen with neck measured at 2.1 cm. There are bilateral groin lymph nodes which are normal in size and appearance. IMPRESSION: Small bilateral fatty containing inguinal hernias. DATA REPOSITORY:
== END 2021-04-01 03:18 ==
PROVIDERS: PCP Nurse Practitioner Family; Visit Provider Nurse Practitioner Family
DX: K40.20 Bilateral inguinal hernia, without obstruction or gangrene, not specified as recurrent (principal)
CPT/HCPCS: 76857

== ENCOUNTER 2021-05-12 02:58 | Outpatient (CLI) | payer OTHER, SELFPAY ==
--- NOTE | 2021-05-12 14:00 | NS.NUTBLAN_ITS ---
Jadon returns for Diabetes Self management education/medical nutrition therapy. He has been using a Austin 2 continuous glucose monitor for last 6 months. Most recent A1C: 7.5% (02/09). Ambulatory Glucose Profile indicates in Time in Range 63% of time, 181-250 mg/dl 25% of time, > 250 mg/dl 12 % of time. Dm meds include metformin 1000 mg BID, glipizde 5-10 mg qd. Following [id number] kcal meal plan and counting carbs and eating 60-65g carb at B, L, D. No formal exercise. Weight stable and BMI wnl. Elevated blood sugars evident in post prandial and fasting state. Reviewed meal time macronutrients and benefits of formal exercise. Encouraged daily walking of 20 minutes after meals to help with post prandial blood sugars. Suspect, insulin resistance causing elevation in blood sugars. Discussed with Jadon, my recommendation to consider basal insulin (Treiba) to target elevated fasting blood sugars. He is very resistant to any form of insulin. Reviewed with him the benefits of starting a GLP1ra such as trulicity- non insulin injectable- and he is open to this. Has tried Jardiance in past, did not tolerate. May also benefit from Januvia by targeting post prandial levels. Do no recommend increasing glipizde due to history of frequent hypoglycemic events in past. Jadon reports having a lot of back/neck pain which may also be contributing to elevated blood sugars. Encouraged follow up with PCP for pain management. Plan: follow up in 30 days to assess glycemic control with added medication therapy recommend adding Trulicity and/or Januvia to current Dm med regime.
== END 2021-05-12 02:59 | disposition home or self-care (01) ==
LOC: DS 02:59
PROVIDERS: PCP Nurse Practitioner Family; Visit Provider Dietitian, Registered
DX: E11.9 Type 2 diabetes mellitus without complications (principal); Z79.84 Long term (current) use of oral hypoglycemic drugs; Z71.3 Dietary counseling and surveillance
CPT/HCPCS: 97803

== ENCOUNTER 2021-05-18 03:17 | Outpatient (CLI) | payer OTHER, SELFPAY ==
[2021-05-18 12:46] LABS: ALT 33 U/L (16-63); AST 29 U/L (15-37); Albumin 4.1 g/dL (3.4-5.0); Alkaline Phosphatase 119 U/L (46-116); Anion Gap 8.3 mmol/L (3-11); BUN 30 mg/dL (7-18); Bilirubin, Total 0.3 mg/dL (0.2-1.0); CO2 29.7 mmol/L (21.0-32.0); CREATININE 1.2 mg/dL (0.70-1.30); Calcium 9.3 mg/dL (8.5-10.1); Chloride 97 mmol/L (98-107); Glucose 171 mg/dL (74-106); Potassium 4.1 mmol/L (3.5-5.1); Sodium 135 mmol/L (136-145); Total Protein 6.8 g/dL (6.4-8.2)
== END 2021-05-18 03:18 | disposition home or self-care (01) ==
LOC: LOS 03:18
PROVIDERS: PCP Nurse Practitioner Family; Visit Provider Nurse Practitioner Family
DX: E11.9 Type 2 diabetes mellitus without complications (principal)
CPT/HCPCS: 36415; 80053

== ENCOUNTER 2021-06-22 02:33 | Outpatient (CLI) | payer OTHER, SELFPAY ==
[2021-06-22 12:54] LABS: Hemoglobin A1C 6.8 % (<5.7)
== END 2021-06-22 02:34 | disposition home or self-care (01) ==
LOC: LOS 02:33
PROVIDERS: PCP Nurse Practitioner Family; Visit Provider Nurse Practitioner Family
DX: E11.9 Type 2 diabetes mellitus without complications (principal)
CPT/HCPCS: 36415; 83036

== ENCOUNTER 2021-07-14 15:00 | Emergency (ER) | payer OTHER, SELFPAY ==
--- NOTE | 2021-07-14 15:03 | ED.GENADUL_ITS ---
Discharge Plan Disposition Patient Disposition: HOME Condition: Stable Discharge Details Clinical Impression: Laceration of wrist, left Primary Care Provider: Ashley Ocasio ED Provider: Romina Ruggiero Home Meds and New Rx's Prescriptions: New cephalexin 500 mg capsule 500 mg PO TID 5 Days Qty: 15 RF: 0 Continued (DME) FreeStyle [place] 14 Day [place] Misc See Rx Instructions .ROUTE .MEDSUPPLY Qty: 1 RF: 4 (DME) FreeStyle [place] 14 Day Sensor Kit See Rx Instructions .ROUTE .MEDSUPPLY Qty: 6 RF: 4 allopurinol 300 mg tablet 300 mg PO DAILY Qty: 90 RF: 4 escitalopram oxalate 20 mg tablet 20 mg PO DAILY Qty: 90 RF: 4 CENTRUM SILVER TABLET 1 EACH tablet 1 tab PO DAILY RF: 0 amitriptyline 10 mg tablet 10 mg PO HS Qty: 90 RF: 4 amlodipine 5 mg tablet 5 mg PO DAILY Qty: 90 RF: 4 tamsulosin 0.4 mg capsule 0.8 mg PO DAILY Qty: 180 RF: 4 glipizide 10 mg tablet 10 mg PO BID Qty: 180 RF: 4 celecoxib [Celebrex] 100 mg capsule 100 mg PO DAILY PRN (Reason: pain) Qty: 60 RF: 4 metformin 1,000 mg tablet 500 - 1,000 mg PO BID Qty: 135 RF: 4 lorazepam 2 mg tablet 2 mg PO QHS PRN (Reason: sleep) Qty: 30 RF: 0 cyclobenzaprine 5 mg tablet 5 mg PO QHS PRN (Reason: muscle spasm) Qty: 60 RF: 0 Discharge Instructions Instructions: Laceration (ED) Additional Instructions: Keep wound clean and dry. Cover wound with bandage if risk of contamination. Otherwise you can keep the wound open to air if resting at home to allow edges to dry and heal. A prescription for antibiotics has been sent electronically to your pharmacy. Take this as directed until finished. Return to the ED in 7 days for suture removal. Return immediately to the emergency department if you develop any worsening or new concerning symptoms. Discharge Data Discharge Date/Time-TO BE ENTERED AT DEPARTURE: 07/14/21 16:30 Discharge Physician: Romina Ruggiero Medical Decision Making 66-year-old male presents with left wrist laceration sustained when a stove pipe he was working with slipped and hit his left wrist. Tetanus up-to-date 2017. Blood pressure hypertensive, patient has a history of hypertension. Patient has a 1.5 cm linear laceration on the volar aspect of his left wrist. No obvious foreign bodies, tendon or vascular injury. He is neurovascularly intact. Area irrigated with saline and anesthetized with 1% lidocaine with epinephrine. 3 nylon 4-0 sutures placed. Area covered with topical antibiotic and pressure dressing. Due to patient's history of diabetes and concern for contaminated wound, will treat with antibiotics. He was given a dose of Keflex here and prescription sent electronically to his pharmacy. Advised to return to the ED in 7 days for suture removal. Advised on proper wound care. Usual and customary return precautions given prior to discharge. Medical Records Medical records reviewed: Yes I reviewed the patient's medical records. HPI General Mode of arrival: ambulatory . Date/Time Provider Initiated Documentation: 07/14/21 15:02 . Limitations to Documentation: no limitations . Information obtained by: patient . HPI Narrative: Patient is a 66 year old right-handed male M who presents with left wrist laceration sustained when working with a stovepipe when it slipped and hit his left wrist. He states the pipe was dirty but still intact and denies any known foreign bodies. Tetanus up-to-date 2016. He denies any numbness, tingling or weakness in his left hand or wrist. Related Data Home Medications Medication Instructions Recorded Confirmed Centrum Silver Tablet 1 tab PO DAILY 12/13/12 07/14/21 amitriptyline 10 mg tablet 10 mg PO HS #90 tab 08/27/20 07/14/21 flash glucose scanning reader #1 ea 10/09/20 07/14/21 flash glucose sensor #6 ea 10/09/20 07/14/21 amlodipine 5 mg tablet 5 mg PO DAILY #90 tab 10/20/20 07/14/21 tamsulosin 0.4 mg capsule 0.8 mg PO DAILY #180 cap 11/26/20 07/14/21 glipizide 10 mg tablet 10 mg PO BID #180 tab 01/30/21 07/14/21 celecoxib 100 mg capsule 100 mg PO DAILY PRN #60 cap 02/20/21 07/14/21 metformin 1,000 mg tablet 500 - 1,000 mg PO BID #135 tab 03/27/21 07/14/21 lorazepam 2 mg tablet 2 mg PO QHS PRN #30 tab 06/22/21 07/14/21 cyclobenzaprine 5 mg tablet 5 mg PO QHS PRN #60 tab 07/01/21 07/14/21 allopurinol 300 mg tablet 300 mg PO DAILY #90 tab-cap 07/03/21 07/14/21 escitalopram oxalate 20 mg tablet 20 mg PO DAILY #90 tab 07/03/21 07/14/21 cephalexin 500 mg PO TID 5 Days #15 cap 07/14/21 Previous Rx's Medication Instructions Recorded amitriptyline 10 mg tablet 10 mg PO HS #90 tab 08/27/20 flash glucose scanning reader #1 ea 10/09/20 flash glucose sensor #6 ea 10/09/20 amlodipine 5 mg tablet 5 mg PO DAILY #90 tab 10/20/20 tamsulosin 0.4 mg capsule 0.8 mg PO DAILY #180 cap 11/26/20 glipizide 10 mg tablet 10 mg PO BID #180 tab 01/30/21 celecoxib 100 mg capsule 100 mg PO DAILY PRN #60 cap 02/20/21 metformin 1,000 mg tablet 500 - 1,000 mg PO BID #135 tab 03/27/21 lorazepam 2 mg tablet 2 mg PO QHS PRN #30 tab 06/22/21 cyclobenzaprine 5 mg tablet 5 mg PO QHS PRN #60 tab 07/01/21 allopurinol 300 mg tablet 300 mg PO DAILY #90 tab-cap 07/03/21 escitalopram oxalate 20 mg tablet 20 mg PO DAILY #90 tab 07/03/21 cephalexin 500 mg PO TID 5 Days #15 cap 07/14/21 Allergies Allergy/AdvReac Type Severity Reaction Status Date / Time acetaminophen [From Tylenol] Allergy Intermediate PT. STATES Verified 07/14/21 15:13 MEDICATION MAKES HIS HEART RACE. latex Allergy Intermediate rash, Verified 07/14/21 15:13 dizziness pravastatin AdvReac Intermediate Myalgias Verified 07/14/21 15:13 rosuvastatin AdvReac Intermediate Myalgias Verified 07/14/21 15:13 zolpidem AdvReac CONFUSION Verified 07/14/21 15:13 General WERO: 3 Review of Systems All systems reviewed & are unremarkable except as noted in HPI and below PFSH Active Problem List (Updated 07/14/21 @ 16:20 by Romina Ruggiero DO) Laceration of wrist, left (Acute) Hernia, inguinal, bilateral (Acute) Mononeuropathy (Chronic) Muscle cramps (Acute) Medical History (Updated 07/14/21 @ 16:20 by Romina Rgugiero DO) BPH w urinary obs/LUTS Chronic kidney disease Depressive disorder Essential hypertension Generalized osteoarthritis GERD (gastroesophageal reflux disease) Gout Hyperlipidemia Insomnia Raynauds syndrome Tubular adenoma of colon Type 2 diabetes mellitus Surgical History History of esophagogastroduodenoscopy (EGD) S/P cervical discectomy (03/31/18) C5-C6, C6-C7 with fusion S/P colonoscopy S/P ORIF (open reduction internal fixation) fracture Left ankle S/P right rotator cuff repair (01/24/18) Status post Emma fundoplication Family History Mother , age 83 Essential hypertension Stroke Diabetes Father , age 65 Lung cancer Sister No problems noted. Brother Asthma Brother No problems noted. Brother No problems noted. Daughter Essential hypertension Daughter Essential hypertension Maternal Grandfather No problems noted. Maternal Grandmother No problems noted. Paternal Grandfather No problems noted. Paternal Grandmother No problems noted. Social History Smoking/Tobacco Use Status: Former Tobacco Use tobacco type: cigarettes Quit Date: 08/22/89 Smoking risk assessment performed?: Yes Alcohol Intake: former Drug use: Never Substance use type: does not use Caregiver/Support person: No Household members: spouse Communication Needs: None Do you need help understanding health information?: Rarely current occupation: none Pets and animals: Yes Pets and animals: dog(s) Sexually active: No Do you think of yourself as: straight/heterosexual Current gender identity: male What is your relationship status?: How often do you talk on the phone with friends or family?: twice per week How often do you get together with friends or relatives?: twice per week How often do you attend zoroastrianism or methodist services?: decline to answer Do you belong to any clubs or organized social groups?: no Panel score (0-1 are the most socially isolated patients): 2 What type of physical activity do you participate in: other 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, 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 Duration: > 90 minutes/day Frequency: daily Esme/Roman Catholic: None Special esme needs: No Seatbelt use: always Drive intox or ride w/intox vibratory pile driver: No Do you feel safe at home: Yes Do you feel safe in your relationship?: Yes Victim of physical abuse: No Victim of emotional abuse: No Victim of sexual abuse: No Would you like helpful sources: No Exam Const General: cooperative, healthy appearing and no acute distress HENMT Head: normal to inspection Mouth: oral mucosae normal Eyes General: appearance normal, both eyes and all related structures Neck Neck: normal visual inspection Resp Effort & Inspection: normal respiratory effort and able to speak in complete sentences Cardio Rate: regular rate Skin General skin exam: no rashes or lesions noted Neuro General: patient alert, patient awake and patient oriented x3 Other: Motor/sensory grossly intact Extrem Elbow/forearm/wrist images: 1. 1.5cm linear laceration on volar surface of distal left wrist. Mild oozing. No foreign bodies, obvious tendon or vascular injury. Other: Left radial and ulnar pulses intact. Psych Appearance: grossly normal Affect: normal affect Procedures Laceration Laceration 1: Site: upper extremity (volar wrist) Side (If applicable): left Size (cm): 1.5 Description: linear Depth: simple, single layer Local Anesthetic: Lidocaine 1% and with Epi Amount of anesthesia used (mL): 4 Pre-repair: wound explored, irrigated extensively and deep structures int act Skin layer closed with: nylon Size (cm): 4-0 Number of sutures: 3 Technique: simple, interrupted
[2021-07-14 15:08] VITALS: BP 185/88; PULSE 73; RESP 16; TEMP 35.1; O2SAT 100
[2021-07-14 16:16] VITALS: BP 152/88; PULSE 73; RESP 18; O2SAT 99
[2021-07-14] MEDS: Cephalexin 500 MG CAP PO (16:27)
== END 2021-07-14 16:30 | disposition home or self-care (01) ==
PROVIDERS: Emergency Provider Physician Assistant; PCP Nurse Practitioner Family
DX: S61.512A Laceration without foreign body of left wrist, initial encounter (principal); W20.8XXA Other cause of strike by thrown, projected or falling object, initial encounter; W26.8XXA Contact with other sharp object(s), not elsewhere classified, initial encounter; E11.9 Type 2 diabetes mellitus without complications; Z79.84 Long term (current) use of oral hypoglycemic drugs
CPT/HCPCS: 12001

== ENCOUNTER 2021-11-03 10:48 | Emergency (ER) | payer MEDICARE, SELFPAY ==
[2021-11-03 10:54] VITALS: BP 172/77; PULSE 71; RESP 16; TEMP 36.9; O2SAT 98
--- NOTE | 2021-11-03 11:00 | DI.RAD_ITS ---
Exam(s) XR HAND LT COMPLETE EXAM: XR HAND LT COMPLETE CLINICAL HISTORY: 4th/5th finger vs saw. TECHNIQUE: 2D digital imaging was performed. COMPARISON: CR XR HAND LT COMPLETE from 05/23/2019 FINDINGS: Soft tissue swelling is seen of the index finger. Laceration near proximal interphalangeal joint. N o definite foreign body. There are multiple, comminuted bony fragments fractured from the base of th e middle phalanx and head of the proximal phalanx. Fracture is significantly involve the articular s urfaces. The distal phalanx is unremarkable. No fracture or foreign body is seen in the thumb. Deg enerative changes are noted at the 3rd metacarpophalangeal joint. There is deformity of the lunate w hich appears chronic, likely related to old fracture.. IMPRESSION: Multiple fracture fragments from the base of the middle phalanx and distal aspect of proximal phalanx . DATA REPOSITORY: RADIATION DOSE DELIVERED:
--- NOTE | 2021-11-03 11:28 | W.ED.GENAD ---
Discharge Plan Disposition Patient Disposition: HOME Condition: Stable Discharge Details Clinical Impression: Open fracture of finger of left hand, Tendon laceration Primary Care Provider: Ashley Ocasio ED Provider: Carlos Cintron Home Meds and New Rx's Prescriptions: New cephalexin 500 mg tablet 500 mg PO QID 10 Days Qty: 40 0RF Continued (DME) FreeStyle [place] 14 Day [place] Misc See Rx Instructions .ROUTE .MEDSUPPLY Qty: 1 4RF Rx Instructions: Continuous glucose monitor amitriptyline 10 mg tablet 10 mg PO HS Qty: 90 4RF amlodipine 5 mg tablet 5 mg PO DAILY Qty: 90 4RF allopurinol 300 mg tablet 300 mg PO DAILY Qty: 90 4RF escitalopram oxalate 20 mg tablet 20 mg PO DAILY Qty: 90 4RF Rx Instructions: Take 1 tab daily CENTRUM SILVER TABLET 1 EACH tablet 1 tab PO DAILY 0RF tamsulosin 0.4 mg capsule 0.8 mg PO DAILY Qty: 180 4RF Rx Instructions: Take 2 capsules daily glipizide 10 mg tablet 10 mg PO BID Qty: 180 4RF Rx Instructions: Take 1 tab twice a day metformin 1,000 mg tablet 500 - 1,000 mg PO BID Qty: 135 4RF Rx Instructions: Take 1 tab in morning and half a tab in evening celecoxib [Celebrex] 100 mg capsule 100 mg PO DAILY PRN (Reason: pain) Qty: 60 4RF (DME) FreeStyle [place] 14 Day Sensor Kit See Rx Instructions .ROUTE .MEDSUPPLY Qty: 6 4RF Rx Instructions: Continuous glucose monitor lorazepam 2 mg tablet 2 mg PO QHS PRN (Reason: sleep) Qty: 28 0RF cyclobenzaprine 5 mg tablet 5 mg PO QHS PRN (Reason: muscle spasm) Qty: 60 0RF Discharge Instructions Instructions: Laceration (ED), Finger Fracture (ED), Tendon Rupture (ED) Additional Instructions: You have sustained a finger fracture and tendon laceration from the table saw. I personally spoke with our orthopedic here at our facility as well as plastics at [facility]. Keflex as directed. Wear splint until reevaluation on with plastics at [facility] but you may change the antibiotic dressing daily. [id number] Tylenol and/or Motrin as directed for discomfort. Rest, elevate, cool compresses every 2 hours for [address] minutes[address] The office of Dr. Vieira should be calling you but if you do not hear from them by tomorrow afternoon please call them at [phone]. Please watch for new or worsening symptoms and return to the ER for any converns Medical Decision Making 66-year-old gentleman, [id number], left hand versus tablesaw. Tetanus status is up-to-date. Laceration to both the left thumb and second digit with what appears to be a flexor tendon laceration of the index finger. Will give 2 g IV Ancef, obtain x-ray, discussed case with orthopedics. Digital block performed, patient asymptomatic. Case discussed with Dr. Fish who personally evaluated the patient, feels as though the patient requires a higher level of care and recommends contacting hand-plastics at [facility]. Also recommends no suturing of the wound at this time. Case discussed with Dr. Vieira, plastics at [facility]. He was able to review the x-ray but is requesting a picture emailed to him, I obtained consent from the patient, took 2 images of the laceration, and sent them to Dr. Vieira's email. He then called me back at 2133, who recommended intrinsic plus splint, and he will have his hand clinic reach out to the patient and set up an appointment on . I also gave the patient the clinic number of [phone]. Patient has no additional questions or concerns and is comfortable with this plan Medical Records Medical records reviewed: Yes I reviewed the patient's medical records. Imaging Data Radiologic Study: Attestation: I personally reviewed and interpreted this imaging study as follows: Imaging: X-Ray Radiologist's impression: Exam(s) XR HAND LT COMPLETE EXAM: XR HAND LT COMPLETE CLINICAL HISTORY: 4th/5th finger vs saw. TECHNIQUE: 2D digital imaging was performed. COMPARISON: CR XR HAND LT COMPLETE from 05/23/2019 FINDINGS: Soft tissue swelling is seen of the index finger. Laceration near proximal interphalangeal joint. No definite foreign body. There are multiple, comminuted bony fragments fractured from the base of the middle phalanx and head of the proximal phalanx. Fracture is significantly involve the articular surfaces. The distal phalanx is unremarkable. No fracture or foreign body is seen in the thumb. Degenerative changes are noted at the 3rd metacarpophalangeal joint. There is deformity of the lunate which appears chronic, likely related to old fracture.. IMPRESSION: Multiple fracture fragments from the base of the middle phalanx and distal aspect of proximal phalanx. HPI General Mode of arrival: ambulatory. Date/Time Provider Initiated Documentation: 11/03/21 11:06. Limitations to Documentation: no limitations. Information obtained by: patient. History of Present Illness 66 year old M presents to the emergency department with the chief complaint of L hand vs tablesaw, described as severe, with intensity rated at 8. Quality is described as aching, and is localized to the left and upper extremity. Patient reports no radiation. Patient started experiencing this minute(s) (45) and it has been constant. improves with No relieving factors improve symptom(s), No exacerbating factors reported . Patient notes no other symptoms.. Patient did receive the following treatments prior to arrival, none Related Data Home Medications Medication Instructions Recorded Confirmed Centrum Silver Tablet 1 tab PO DAILY 12/13/12 11/03/21 flash glucose scanning reader #1 ea 10/09/20 11/03/21 (FreeStyle [place] 14 Day [place]) tamsulosin 0.4 mg capsule 0.8 mg PO DAILY #180 cap 11/26/20 11/03/21 glipizide 10 mg tablet 10 mg PO BID #180 tab 01/30/21 11/03/21 metformin 1,000 mg tablet 500 - 1,000 mg PO BID #135 tab 03/27/21 11/03/21 allopurinol 300 mg tablet 300 mg PO DAILY #90 tab-cap 07/03/21 11/03/21 escitalopram oxalate 20 mg tablet 20 mg PO DAILY #90 tab 07/03/21 11/03/21 celecoxib 100 mg capsule (Celebrex) 100 mg PO DAILY PRN #60 cap 08/19/21 11/03/21 flash glucose sensor (FreeStyle #6 ea 09/23/21 11/03/21 [place] 14 Day Sensor) lorazepam 2 mg tablet 2 mg PO QHS PRN #28 tab 10/12/21 11/03/21 amitriptyline 10 mg tablet 10 mg PO HS #90 tab 10/16/21 11/03/21 amlodipine 5 mg tablet 5 mg PO DAILY #90 tab 10/16/21 11/03/21 cyclobenzaprine 5 mg tablet 5 mg PO QHS PRN #60 tab 10/30/21 11/03/21 cephalexin 500 mg tablet 500 mg PO QID 10 Days #40 tab 11/03/21 Previous Rx's Medication Instructions Recorded flash glucose scanning reader #1 ea 10/09/20 (FreeStyle [place] 14 Day [place]) tamsulosin 0.4 mg capsule 0.8 mg PO DAILY #180 cap 11/26/20 glipizide 10 mg tablet 10 mg PO BID #180 tab 01/30/21 metformin 1,000 mg tablet 500 - 1,000 mg PO BID #135 tab 03/27/21 allopurinol 300 mg tablet 300 mg PO DAILY #90 tab-cap 07/03/21 escitalopram oxalate 20 mg tablet 20 mg PO DAILY #90 tab 07/03/21 celecoxib 100 mg capsule (Celebrex) 100 mg PO DAILY PRN #60 cap 08/19/21 flash glucose sensor (FreeStyle #6 ea 09/23/21 [place] 14 Day Sensor) lorazepam 2 mg tablet 2 mg PO QHS PRN #28 tab 10/12/21 amitriptyline 10 mg tablet 10 mg PO HS #90 tab 10/16/21 amlodipine 5 mg tablet 5 mg PO DAILY #90 tab 10/16/21 cyclobenzaprine 5 mg tablet 5 mg PO QHS PRN #60 tab 10/30/21 cephalexin 500 mg tablet 500 mg PO QID 10 Days #40 tab 11/03/21 Allergies Allergy/AdvReac Type Severity Reaction Status Date / Time acetaminophen [From Tylenol] Allergy Intermediate PT. STATES Verified 11/03/21 10:57 MEDICATION MAKES HIS HEART RACE. latex Allergy Intermediate rash, Verified 11/03/21 10:57 dizziness pravastatin AdvReac Intermediate Myalgias Verified 11/03/21 10:57 rosuvastatin AdvReac Intermediate Myalgias Verified 11/03/21 10:57 zolpidem AdvReac CONFUSION Verified 11/03/21 10:57 General Stated Complaint: Laceration WERO: 4 Review of Systems Constitutional Constitutional: Denies fever(s) Musculoskeletal Musculoskeletal: Reports deformity, Reports arthralgias, Reports numbness, Reports stiffness and Reports tingling Integumentary/Breasts Skin/Breast: Denies rash Neurologic Neurologic: Reports numbness and Reports tingling PFS All Active Problems (Updated 11/03/21 @ 14:28 by DONALD Ibarra) Open fracture of finger of left hand (Acute) Tendon laceration (Acute) Type 2 diabetes mellitus (Chronic) Chronic kidney disease (Chronic) Essential hypertension (Chronic) Hyperlipidemia (Chronic) Generalized osteoarthritis (Chronic) Depressive disorder (Chronic) Insomnia (Chronic) Gout (Chronic) BPH w urinary obs/LUTS (Chronic) Hernia, inguinal, bilateral (Chronic) Mononeuropathy (Chronic) Idiopathic, left foot Muscle cramps (Chronic) Tubular adenoma of colon (Chronic) Raynauds syndrome (Chronic) Medical History GERD (gastroesophageal reflux disease) Surgical History History of esophagogastroduodenoscopy (EGD) S/P cervical discectomy (03/31/18) C5-C6, C6-C7 with fusion S/P colonoscopy (2018) S/P ORIF (open reduction internal fixation) fracture Left ankle S/P right rotator cuff repair (01/24/18) Status post Emma fundoplication Family History Mother , age 83 Essential hypertension Stroke Diabetes Father , age 65 Lung cancer Sister No problems noted. Brother Asthma Brother No problems noted. Brother No problems noted. Daughter Essential hypertension Daughter Essential hypertension Maternal Grandfather No problems noted. Maternal Grandmother No problems noted. Paternal Grandfather No problems noted. Paternal Grandmother No problems noted. Social History Smoking/Tobacco Use Status: Former Tobacco Use tobacco type: cigarettes Quit Date: 08/22/89 Second Hand Exposure: Yes Smoking risk assessment performed?: Yes Alcohol Intake: former Drug use: Never Substance use type: does not use Household members: spouse Housing: house Do you need help understanding health information?: Rarely current occupation: none Pets and animals: Yes Pets and animals: dog(s) Sexually active: No Do you think of yourself as: straight/heterosexual Current gender identity: male What is your relationship status?: How often do you talk on the phone with friends or family?: once per week How often do you get together with friends or relatives?: twice per week How often do you attend jainism or tenriism services?: decline to answer Do you belong to any clubs or organized social groups?: decline to answer Panel score (0-1 are the most socially isolated patients): 2 What type of physical activity do you participate in: other 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, 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 Duration: 45-60 minutes/day Frequency: 3-4 times per week Esme/Lutheran: None Special esme needs: No Seatbelt use: always Drive intox or ride w/intox drivers license examiner: No Do you feel safe at home: Yes Do you feel safe in your relationship?: Yes Victim of physical abuse: No Victim of emotional abuse: No Victim of sexual abuse: No Would you like helpful sources: No Exam Const General: cooperative and healthy appearing Orientation: alert and awake HENMT Head: normal to inspection, normocephalic and atraumatic Eyes General: appearance normal, both eyes and all related structures Conjunctivae: conjunctivae normal Neck Neck: normal visual inspection, trachea midline and supple Resp Effort & Inspection: normal respiratory effort and able to speak in complete sentences Cardio Rate: regular rate Rhythm: regular rhythm Skin General skin exam: no rashes or lesions noted Neuro General: patient alert, patient awake and moves all extremities Extrem General: capillary refill normal Other: Left hand, thumb, distal aspect to the PIP joint, flexor aspect with an irregular 2 cm laceration that does extend into the distal nail but the nail appears to be well adhered to the nailbed. Neuro, vascular, tendon intact. 5 out of 5 strength. No active bleeding. Left index finger with an irregular 3 cm laceration along the flexor aspect that goes through the PIP joint and just lateral to the ulnar aspect. Bleeding appears to be in control. There is distal neuro deficit, patient reports an altered sensation but can still feel direct pressure over the nail bed. He has full extension but no flexion at the PIP or DIP. Normal capillary refill. Psych Appearance: grossly normal Mental Status: mental status grossly normal Course Vital Signs Vital signs: Vital Signs Temperature 36.9 C 11/03/21 10:54 Pulse 71 11/03/21 10:54 Respiratory Rate 16 11/03/21 10:54 Blood Pressure 172/77 H 11/03/21 10:54 Pulse Oximetry 98 11/03/21 10:54 Temperature 36.9 C 11/03/21 10:54 Temperature Source Skin 11/03/21 10:54 Pulse 71 11/03/21 10:54 Respiratory Rate 16 11/03/21 10:54 Respiratory Effort 11/03/21 10:54 Blood Pressure 172/77 H 11/03/21 10:54 Blood Pressure Position Sitting 11/03/21 10:54 Pulse Oximetry 98 11/03/21 10:54 Oxygen Delivery Method Room Air 11/03/21 10:54 Oxygen Flow Rate 0 11/03/21 10:54 Pain Level 8 11/03/21 10:54 Procedures Nerve Block Nerve Block 1: Local Anesthetic: Lidocaine 1%, Bupivicaine 0.5% and other anesthetic ([id number] mixture) Amount of anesthesia used (mL): 6 Side: left Nerve Blocks: digital (Both thumb and index finger) Procedure Successful: Yes Patient Tolerated Procedure: well and no complications Complications: none
[2021-11-03] MEDS: Bupivacaine 0.5% Pres-Free 30 ML VIAL (11:40)
[2021-11-03] MEDS: ceFAZolin 2 GM/50 ML BAG IVPB (12:24)
--- NOTE | 2021-11-03 13:16 | NUR.NOTE ---
Nursing Note: Pt finished soaking hand, bleeding stopped, dressing applied to hand after seen by Dr. Fish, pt to room to discuss further treatment w/pt and provider. Pt denies pain at this time.
[2021-11-03 13:46] VITALS: BP 135/78; PULSE 69; RESP 16; TEMP 36.7; O2SAT 97
--- NOTE | 2021-11-03 14:30 | NUR.NOTE ---
Nursing Note: Dressing re-applied to wound, antibiotic ointment/telfa/gauze & coban, splint in place by provider
[2021-11-03 14:38] VITALS: BP 133/68; PULSE 68; RESP 16; TEMP 36.6; O2SAT 97
== END 2021-11-03 14:37 | disposition home or self-care (01) ==
PROVIDERS: Emergency Provider Physician Assistant; PCP Nurse Practitioner Family
DX: S62.621B Displaced fracture of middle phalanx of left index finger, initial encounter for open fracture (principal); S61.012A Laceration without foreign body of left thumb without damage to nail, initial encounter; W31.2XXA Contact with powered woodworking and forming machines, initial encounter
CPT/HCPCS: 29125; 64450; 96365; 99284; 73130; J0690

== ENCOUNTER 2021-12-14 11:59 | Outpatient (REF) | payer MEDICARE, SELFPAY ==
[2021-12-15 18:05] LABS: COVID-19 RT-PCR UVMMC Result Positive (Negative)
== END 2021-12-14 12:00 | disposition home or self-care (01) ==
LOC: NCHCN 11:59
PROVIDERS: PCP Nurse Practitioner Family; Visit Provider Physician Assistant
DX: Z20.822 Contact with and (suspected) exposure to COVID-19 (principal)
CPT/HCPCS: U0003; U0005

== ENCOUNTER 2022-01-08 02:17 | Outpatient (CLI) | payer OTHER, SELFPAY ==
[2022-01-08 12:59] LABS: Hemoglobin A1C 8.5 % (<5.7)
[2022-01-08 13:23] LABS: Anion Gap 7.1 mmol/L (3-11); BUN 31 mg/dL (7-18); CO2 27.9 mmol/L (21.0-32.0); CREATININE 1.2 mg/dL (0.70-1.30); Calcium 9.1 mg/dL (8.5-10.1); Chloride 94 mmol/L (98-107); Glucose 291 mg/dL (74-106); Potassium 4.4 mmol/L (3.5-5.1); Sodium 129 mmol/L (136-145); Uric Acid 3.5 mg/dL (3.5-7.2)
== END 2022-01-08 02:18 | disposition home or self-care (01) ==
LOC: LOS 02:17
PROVIDERS: PCP Nurse Practitioner Family; Visit Provider Nurse Practitioner Family
DX: E11.9 Type 2 diabetes mellitus without complications (principal); M10.9 Gout, unspecified
CPT/HCPCS: 36415; 80048; 83036; 84550

== ENCOUNTER 2022-06-01 02:58 | Outpatient (CLI) | payer OTHER, SELFPAY ==
[2022-06-01 09:04] LABS: Anion Gap 8.6 mmol/L (3-11); BUN 24 mg/dL (7-18); CO2 29.4 mmol/L (21.0-32.0); CREATININE 1.1 mg/dL (0.70-1.30); Calcium 9.4 mg/dL (8.5-10.1); Chloride 100 mmol/L (98-107); Estimated GFR 73.58 (mL/min/1.73m2); Glucose 231 mg/dL (74-106); Potassium 4.9 mmol/L (3.5-5.1); Sodium 138 mmol/L (136-145)
== END 2022-06-01 02:59 | disposition home or self-care (01) ==
LOC: LBO 02:58
PROVIDERS: PCP Nurse Practitioner Family; Visit Provider Nurse Practitioner Family
DX: E11.9 Type 2 diabetes mellitus without complications (principal)
CPT/HCPCS: 36415; 80048; 86341

== ENCOUNTER 2022-07-20 04:02 | Outpatient (CLI) | payer OTHER, SELFPAY ==
[2022-07-20 12:47] LABS: Hemoglobin A1C 7.2 % (<5.7)
== END 2022-07-20 04:03 | disposition home or self-care (01) ==
LOC: LOS 04:02
PROVIDERS: PCP Nurse Practitioner Family; Visit Provider Nurse Practitioner Family
DX: E11.9 Type 2 diabetes mellitus without complications (principal)
CPT/HCPCS: 36415; 83036

== ENCOUNTER 2022-08-26 11:41 | Outpatient (REF) | payer OTHER, SELFPAY ==
[2022-08-26 13:33] LABS: COMMENT (LAB VIEW ONLY) 67.59 mg/dL
[2022-08-26 14:09] LABS: Microalb ug/mg Crea 153.7 ug/mg Cr
== END 2022-08-26 11:42 | disposition home or self-care (01) ==
LOC: LBN 11:41
PROVIDERS: PCP Nurse Practitioner Family; Visit Provider Nurse Practitioner Family
DX: E11.40 Type 2 diabetes mellitus with diabetic neuropathy, unspecified (principal); Z79.4 Long term (current) use of insulin
CPT/HCPCS: 82043; 82570

== ENCOUNTER 2022-09-24 01:19 | Outpatient (CLI) | payer OTHER, SELFPAY ==
[2022-09-24 12:24] LABS: Anion Gap 5.4 mmol/L (3-11); BUN 34 mg/dL (7-18); CO2 30.6 mmol/L (21.0-32.0); CREATININE 1.4 mg/dL (0.70-1.30); Calcium 9.4 mg/dL (8.5-10.1); Chloride 100 mmol/L (98-107); Estimated GFR 55.09 (mL/min/1.73m2); Glucose 202 mg/dL (74-106); Potassium 4.5 mmol/L (3.5-5.1); Sodium 136 mmol/L (136-145)
[2022-09-24 12:26] LABS: Hemoglobin A1C 7.2 % (<5.7)
== END 2022-09-24 01:20 | disposition home or self-care (01) ==
LOC: LOS 01:19
PROVIDERS: PCP Nurse Practitioner Family; Visit Provider Nurse Practitioner Family
DX: E11.40 Type 2 diabetes mellitus with diabetic neuropathy, unspecified (principal); Z79.4 Long term (current) use of insulin
CPT/HCPCS: 36415; 80048; 83036

== ENCOUNTER 2023-01-05 13:27 | Outpatient (REF) | payer OTHER, SELFPAY ==
[2023-01-05 14:09] LABS: *AMPHETAMINES SCREEN URINE Negative (Negative); *BARBITURATES SCREEN URINE Negative (Negative); *BENZODIAZEPINES SCREEN URINE Negative (Negative); Cannabinoids THC Negative (Negative); Cocaine Screen,Urine Negative (Negative); METHADONE URINE SCREEN Negative (Negative); OPIATES URINE SCREEN Negative (Negative); Tricyclic Antidepressants Negative (Negative)
== END 2023-01-05 13:28 | disposition home or self-care (01) ==
LOC: LBN 13:27
PROVIDERS: PCP Nurse Practitioner Family; Visit Provider Nurse Practitioner Family
DX: F33.9 Major depressive disorder, recurrent, unspecified (principal); Z79.899 Other long term (current) drug therapy
CPT/HCPCS: 80307

== ENCOUNTER 2023-01-11 02:50 | Outpatient (CLI) | payer OTHER, SELFPAY ==
[2023-01-11 12:35] LABS: Anion Gap 7.3 mmol/L (3-11); BUN 32 mg/dL (7-18); CO2 29.7 mmol/L (21.0-32.0); CREATININE 1.3 mg/dL (0.70-1.30); Calcium 9.6 mg/dL (8.5-10.1); Chloride 98 mmol/L (98-107); Estimated GFR 60.21 (mL/min/1.73m2); Glucose 170 mg/dL (74-106); Potassium 4.6 mmol/L (3.5-5.1); Sodium 135 mmol/L (136-145)
[2023-01-11 12:42] LABS: Hemoglobin A1C 7.4 % (<5.7)
[2023-01-12 19:55] LABS: PSA, Screening 2.4 ng/mL (<=4.5)
== END 2023-01-11 02:51 | disposition home or self-care (01) ==
LOC: LOS 02:55
PROVIDERS: PCP Nurse Practitioner Family; Visit Provider Nurse Practitioner Family
DX: E11.40 Type 2 diabetes mellitus with diabetic neuropathy, unspecified (principal); Z79.4 Long term (current) use of insulin; N18.30 Chronic kidney disease, stage 3 unspecified; Z12.5 Encounter for screening for malignant neoplasm of prostate
CPT/HCPCS: 36415; 80048; 84153; 83036

== ENCOUNTER → 2023-04-21 00:25 | Outpatient (CLI) | payer OTHER, SELFPAY ==
--- NOTE | 2023-04-21 08:15 | DI.RAD_ITS ---
Exam(s) XR HIP LT COMPLETE AP PELVIS EXAM: XR HIP LT COMPLETE AP PELVIS CLINICAL HISTORY: chronic left hip pain, hx of surgery, M25.552, G89.29 chronic pain. TECHNIQUE: 2D digital imaging was performed of the left hip. Two views were obtained. AP pelvis an d lateral left hip views were obtained. COMPARISON: No exams were available for comparison FINDINGS: BONES: No acute fracture is present. No bony destructive lesion is seen. Posttraumatic changes are se en in the proximal the left femur. JOINTS: No dislocation present. There are degenerative changes seen at the hips characterized by join t space narrowing and acetabular spurring. The findings are most marked on the right. SOFT TISSUE: Normal. IMPRESSION: 1. Degenerative changes of the hips, right greater than left. 2. Posttraumatic and postsurgical changes of the left femur. DATA REPOSITORY: RADIATION DOSE DELIVERED:
== END ==
PROVIDERS: PCP Nurse Practitioner Family; Visit Provider Nurse Practitioner Family
DX: M16.11 Unilateral primary osteoarthritis, right hip (principal); M16.12 Unilateral primary osteoarthritis, left hip; Z98.890 Other specified postprocedural states
CPT/HCPCS: 73502

== ENCOUNTER 2023-07-11 13:47 | Outpatient (CLI) | payer MEDICARE, SELFPAY ==
--- NOTE | 2023-07-11 09:15 | DI.RAD_ITS ---
Exam(s) XR HIP LT COMPLETE AP PELVIS EXAM: XR HIP LT COMPLETE AP PELVIS CLINICAL HISTORY: LEFT HIP PAIN. TECHNIQUE: 2D digital imaging was performed. Two views. COMPARISON: CR XR HIP LT COMPLETE AP PELVIS from 04/21/2023 FINDINGS: BONES: No acute fracture is present. No bony destructive lesion is seen. Screw in proximal left femur . Chronic deformity of the femur related to old fracture and hardware. JOINTS: No dislocation present. mild narrowing of the right hip joint space. Acetabular spurring, greater on the right. Small enthesophytes at the greater and lesser trochanters. SOFT TISSUE: Normal. IMPRESSION: Stable degenerative changes and old left femoral fracture deformity. DATA REPOSITORY: RADIATION DOSE DELIVERED:
== END 2023-07-11 13:48 | disposition home or self-care (01) ==
LOC: DIORS 13:47
PROVIDERS: PCP Family Medicine; Visit Provider Student in an Organized Health Care Education/Training Program
DX: M16.0 Bilateral primary osteoarthritis of hip; G89.29 Other chronic pain; Z87.81 Personal history of (healed) traumatic fracture
CPT/HCPCS: 99213; 73502

== ENCOUNTER → 2023-07-21 13:48 | Outpatient (BNVA) | payer MEDICARE, SELFPAY | PROVIDERS: PCP Family Medicine; Referring Provider Family Medicine; Visit Provider Physician Assistant | DX: M16.12 Unilateral primary osteoarthritis, left hip (principal); G89.29 Other chronic pain | CPT/HCPCS: 20611; J1040 ==

== ENCOUNTER 2023-08-03 10:11 | Outpatient (CLI) | payer MEDICARE, SELFPAY ==
[2023-08-03 12:16] LABS: Abs Immature Grans 0.05 10^3/uL (0.0-0.06); Absolute Basophil Count 0.03 10^3/uL (0.0-0.2); Absolute Eosinophil Count 0.21 10^3/uL (0.0-0.7); Absolute Lymphocyte Count 2.53 10^3/uL (1.2-3.4); Absolute Monocyte Count 0.65 10^3/uL (0.1-0.8); Absolute Neutrophil Count 6.37 10^3/uL (1.2-6.7); Basophils % 0.3; Eosinophils % 2.1; HCT 40.1 % (40.0-50.0); HGB 13.7 g/dL (13.5-17.5); Immature Grans % 0.5; Lymphocytes % 25.7; MCH 32.5 pg (27.0-33.0); MCHC 34.2 % (32.0-36.0); MCV 95 fL (80-95); MPV 10.8 fL (8.0-11.0); Monocytes % 6.6; Neutrophils % 64.8; Platelet Count 152 10^3/uL (130-400); RBC 4.22 10^6/uL (4.36-5.78); RDW-SD 45.3 fL; WBC 9.84 10^3/uL (4.4-10.8)
[2023-08-03 12:30] LABS: ALT 27 U/L (16-63); AST 18 U/L (15-37); Albumin 3.9 g/dL (3.4-5.0); Alkaline Phosphatase 117 U/L (46-116); Anion Gap 8.3 mmol/L (3-11); BUN 27 mg/dL (7-18); Bilirubin, Total 0.3 mg/dL (0.2-1.0); CO2 27.7 mmol/L (21.0-32.0); CREATININE 1.5 mg/dL (0.70-1.30); Calcium 9.3 mg/dL (8.5-10.1); Chloride 100 mmol/L (98-107); Glucose 112 mg/dL (74-106); Potassium 4.3 mmol/L (3.5-5.1); Sodium 136 mmol/L (136-145); Total Protein 7.1 g/dL (6.4-8.2)
== END 2023-08-03 10:12 | disposition home or self-care (01) ==
LOC: LOS 10:11
PROVIDERS: PCP Family Medicine; Visit Provider Nurse Practitioner Family
DX: R19.7 Diarrhea, unspecified (principal)
CPT/HCPCS: 36415; 80053; 85025

== ENCOUNTER 2023-09-02 18:13 | Outpatient (REF) | payer OTHER, SELFPAY ==
[2023-09-02 17:43] LABS: COMMENT (LAB VIEW ONLY) 24.06 mg/dL
[2023-09-02 17:49] LABS: Microalb ug/mg Crea 378.6 ug/mg Cr
== END 2023-09-02 18:14 | disposition home or self-care (01) ==
LOC: LBN 18:13
PROVIDERS: PCP Family Medicine; Visit Provider Family Medicine
DX: E11.9 Type 2 diabetes mellitus without complications (principal); Z79.4 Long term (current) use of insulin
CPT/HCPCS: 82043; 82570

== ENCOUNTER 2024-01-13 02:24 | Outpatient (CLI) | payer OTHER, SELFPAY ==
[2024-01-13 09:54] LABS: BUN 25 mg/dL (7-18); CREATININE 1.4 mg/dL (0.70-1.30); Chloride 104 mmol/L (98-107); Estimated GFR 54.75 (mL/min/1.73m2); Glucose 158 mg/dL (74-106); Potassium 3.8 mmol/L (3.5-5.1); Sodium 134 mmol/L (136-145)
== END 2024-01-13 02:25 | disposition home or self-care (01) ==
LOC: LOS 02:24
PROVIDERS: PCP Family Medicine; Visit Provider Family Medicine
DX: E11.40 Type 2 diabetes mellitus with diabetic neuropathy, unspecified; Z79.4 Long term (current) use of insulin
CPT/HCPCS: 36415; 80048; 83036

== ENCOUNTER → 2024-01-20 10:06 | Outpatient (BNVA) | payer OTHER, SELFPAY | PROVIDERS: PCP Family Medicine; Referring Provider Family Medicine; Visit Provider Physician Assistant | DX: M16.12 Unilateral primary osteoarthritis, left hip (principal) | CPT/HCPCS: 20611; J1010 ==

== ENCOUNTER 2024-02-10 01:11 | Outpatient (CLI) | payer OTHER, SELFPAY ==
[2024-02-10 13:07] LABS: Anion Gap 7.4 mmol/L (3-11); BUN 31 mg/dL (7-18); CO2 26.6 mmol/L (21.0-32.0); CREATININE 1.4 mg/dL (0.70-1.30); Calcium 9.2 mg/dL (8.5-10.1); Chloride 101 mmol/L (98-107); Estimated GFR 54.75 (mL/min/1.73m2); Glucose 277 mg/dL (74-106); Magnesium 1.6 mg/dL (1.8-2.4); Potassium 4.5 mmol/L (3.5-5.1); Sodium 135 mmol/L (136-145)
== END 2024-02-10 01:12 | disposition home or self-care (01) ==
LOC: LOS 01:11
PROVIDERS: PCP Family Medicine; Visit Provider Family Medicine
DX: R25.2 Cramp and spasm (principal); I10 Essential (primary) hypertension
CPT/HCPCS: 36415; 80048; 83735

== ENCOUNTER 2024-02-13 03:00 | Outpatient (CLI) | payer OTHER, SELFPAY ==
[2024-02-13 12:50] LABS: COMMENT (LAB VIEW ONLY) 67.12 mg/dL; PROTEIN 121.2 mg/dL; PROTEIN 121.8 mg/dL (0.0-11.9)
[2024-02-13 18:50] LABS: Parathyroid Hormone,Intact 60 pg/mL (19-88)
== END 2024-02-13 03:01 | disposition home or self-care (01) ==
LOC: LOS 03:00
PROVIDERS: PCP Family Medicine; Visit Provider Family Medicine
DX: N18.31 Chronic kidney disease, stage 3a (principal)
CPT/HCPCS: 36415; 82306; 82565; 83970; 84156

== ENCOUNTER 2024-02-17 01:45 | Outpatient (CLI) | payer OTHER, SELFPAY ==
[2024-02-20 14:15] LABS: Albumin 63.4 % (55.8-66.1); Albumin g/dL 4.1 g/dL (3.6-5.2); Total Protein 6.5 g/dL (6.3-8.2)
[2024-02-20 16:02] LABS: Albumin, Urine % 83.6 %; Albumin, Urine mg/dL 204 mg/dL; Globulins, Urine % 16.4 %; Globulins, Urine mg/dL 40 mg/dL; Immunotyping, Urine (See Note); Total Protein Urine 244 mg/dL (See Note)
== END 2024-02-17 01:46 | disposition home or self-care (01) ==
LOC: LBO 01:46
PROVIDERS: PCP Family Medicine; Visit Provider Family Medicine
DX: N18.31 Chronic kidney disease, stage 3a (principal)
CPT/HCPCS: 36415; 84156; 84166; 86335; 84165

== ENCOUNTER 2024-07-02 01:49 | Outpatient (CLI) | payer OTHER, SELFPAY ==
--- NOTE | 2024-07-02 07:30 | DI.RAD_ITS ---
Exam(s) XR ANKLE LT COMPLETE EXAM: XR ANKLE LT COMPLETE CLINICAL HISTORY: chronic l ankle pain,M25.572,H/O FX,Z87.81.S/P ORIF,Z98.890 TECHNIQUE: 2D digital imaging was performed. Three views. COMPARISON: CR XR FOOT LT COMPLETE from 01/05/2021 FINDINGS: BONES: Stable appearance talocalcaneal fusion with screw in place. Stable calcaneal deformity. No a cute fracture is present. No bony destructive lesion is seen. JOINTS:The ankle mortise is normally aligned. Tibiotalar joint space is maintained. Degenerative c hanges talofibular and talonavicular joints. SOFT TISSUE: Normal multiple tiny metallic fragments again noted posteriorly. IMPRESSION: stable postsurgical and degenerative changes DATA REPOSITORY: RADIATION DOSE DELIVERED:
== END 2024-07-02 02:09 ==
LOC: DI 01:50
PROVIDERS: PCP Family Medicine; Visit Provider Family Medicine
DX: Z98.890 Other specified postprocedural states (principal); Z87.81 Personal history of (healed) traumatic fracture; M25.572 Pain in left ankle and joints of left foot
CPT/HCPCS: 73610

== ENCOUNTER 2024-07-03 04:53 | Outpatient (CLI) | payer OTHER, SELFPAY ==
[2024-07-03 09:03] LABS: PTT Activated 24.7 sec (23.6-32.8); Prothrombin Time 9.6 sec (9.1-11.1)
[2024-07-03 09:09] LABS: ALT 25 U/L (16-63); AST 27 U/L (15-37); Albumin 3.5 g/dL (3.4-5.0); Alkaline Phosphatase 153 U/L (46-116); Anion Gap 7.7 mmol/L (3-11); BUN 26 mg/dL (7-18); Bilirubin, Total 0.29 mg/dL (0.2-1.0); CO2 28.3 mmol/L (21.0-32.0); CREATININE 1.5 mg/dL (0.70-1.30); Calcium 8.9 mg/dL (8.5-10.1); Calculated LDL 70 mg/dL (<100); Chloride 102 mmol/L (98-107); Cholesterol 167 mg/dL (<200); Estimated GFR 50.08 (mL/min/1.73m2); Glucose 188 mg/dL (74-106); HDL Cholesterol 59 mg/dL (40-60); Potassium 4.1 mmol/L (3.5-5.1); Sodium 138 mmol/L (136-145); Total Protein 6.7 g/dL (6.4-8.2); Triglyceride 190 mg/dL (<150)
[2024-07-03 09:35] LABS: COMMENT (LAB VIEW ONLY) 48.98 mg/dL; Microalb ug/mg Crea 628.8 ug/mg Cr
== END 2024-07-03 04:54 | disposition home or self-care (01) ==
LOC: LOS 04:54
PROVIDERS: PCP Family Medicine; Visit Provider Family Medicine
DX: Z79.01 Long term (current) use of anticoagulants (principal); R58 Hemorrhage, not elsewhere classified; E11.9 Type 2 diabetes mellitus without complications; E11.29 Type 2 diabetes mellitus with other diabetic kidney complication; R80.9 Proteinuria, unspecified; Z79.4 Long term (current) use of insulin; D62 Acute posthemorrhagic anemia
CPT/HCPCS: 36415; 80053; 80061; 82043; 82570; 85610; 85730

== ENCOUNTER 2024-07-12 02:34 | Outpatient (CLI) | payer OTHER, SELFPAY ==
--- NOTE | 2024-07-12 06:15 | DI.US_ITS ---
Exam(s) US ABDOMEN EXAM: US ABDOMEN CLINICAL HISTORY: elev adebayo puri,r74.8 TECHNIQUE: Ultrasound of complete upper abdomen performed using standard protocol. COMPARISON: US POCUS EXAM from 01/20/2024 FINDINGS: There is no ascites evident. LIVER: There are no hepatic lesions evident nor obvious dilatation of intrahepatic ducts. GALLBLADDER/BILIARY: There are no shadowing mobile gallstone gallstones. However, there are multiple small gallbladder wall polyps the average size 2-3 mm. There is no gallbladder wall edema nor peric holecystic fluid. The common hepatic duct isnot dilated, measuring 5mm at the level of estela hepatis. PANCREAS: There is no evidence of pancreatic mass nor dilatation of the pancreatic duct. SPLEEN: The spleen is not enlarged and there are no intrasplenic lesions evident. KIDNEYS:Kidneys exhibit normal size with no evidence of solid mass, calculus, nor hydronephrosis. A s mall benign 1 cm cyst in the lateral cortex exophytic right kidney. Does not require further workup. ABDOMINAL AORTA: There is no evidence of abdominal aortic aneurysm. IVC: Normal diameter where visualized. IMPRESSION: 1. There are multiple tiny polyps in the gallbladder. No shadowing gallstones nor evidence of acute cholecystitis. The CBD is not dilated. 2. No other significant ultrasound findings in the upper abdomen. 3. There is no ascites. DATA REPOSITORY:
== END 2024-07-12 02:54 ==
LOC: DI 02:35
PROVIDERS: PCP Family Medicine; Visit Provider Family Medicine
DX: R74.8 Abnormal levels of other serum enzymes (principal); K82.4 Cholesterolosis of gallbladder
CPT/HCPCS: 76700

== ENCOUNTER → 2024-08-06 14:42 | Outpatient (BNVA) | payer OTHER, SELFPAY | PROVIDERS: PCP Family Medicine; Referring Provider Family Medicine; Visit Provider Surgery | DX: K82.4 Cholesterolosis of gallbladder (principal); K82.9 Disease of gallbladder, unspecified; K59.00 Constipation, unspecified; N18.31 Chronic kidney disease, stage 3a; N40.1 Benign prostatic hyperplasia with lower urinary tract symptoms; N13.8 Other obstructive and reflux uropathy; E11.40 Type 2 diabetes mellitus with diabetic neuropathy, unspecified; Z79.4 Long term (current) use of insulin | CPT/HCPCS: 99214 ==

== ENCOUNTER 2024-12-25 02:01 | Outpatient (CLI) | payer MEDICARE, SELFPAY ==
[2024-12-25 13:19] LABS: ALT 26 U/L (16-63); AST 25 U/L (15-37); Albumin 3.9 g/dL (3.4-5.0); Alkaline Phosphatase 106 U/L (46-116); Anion Gap 6.2 mmol/L (3-11); BUN 35 mg/dL (7-18); Bilirubin, Total 0.3 mg/dL (0.2-1.0); CO2 28.8 mmol/L (21.0-32.0); CREATININE 1.3 mg/dL (0.70-1.30); Calcium 9.3 mg/dL (8.5-10.1); Calculated LDL 103 mg/dL (<100); Chloride 103 mmol/L (98-107); Cholesterol 184 mg/dL (<200); Estimated GFR 59.47 (mL/min/1.73m2); Glucose 93 mg/dL (74-106); HDL Cholesterol 64 mg/dL (>or=40); Potassium 4.2 mmol/L (3.5-5.1); Sodium 138 mmol/L (136-145); Total Protein 7.1 g/dL (6.4-8.2); Triglyceride 89 mg/dL (<150); Vitamin D 25 Total 41 ng/mL (30-100)
[2024-12-25 13:32] LABS: PHOSPHORUS 3.5 mg/dL (2.6-4.7)
[2024-12-25 13:42] LABS: PROTEIN 23.6 mg/dL (0.0-11.9)
[2024-12-26 10:35] LABS: Parathyroid Hormone,Intact 34 pg/mL (19-88)
[2024-12-26 14:02] LABS: Albumin 64.2 % (55.8-66.1); Albumin g/dL 4.1 g/dL (3.6-5.2); Total Protein 6.4 g/dL (6.3-8.2)
[2024-12-26 16:18] LABS: Albumin, Urine % 72.1 %; Albumin, Urine mg/dL 32 mg/dL; Globulins, Urine % 27.9 %; Globulins, Urine mg/dL 12 mg/dL; Immunotyping, Urine (See Note); Total Protein Urine 44 mg/dL (See Note)
== END 2024-12-25 02:02 | disposition home or self-care (01) ==
LOC: LOS 02:01
PROVIDERS: PCP Family Medicine; Visit Provider Family Medicine
DX: E11.29 Type 2 diabetes mellitus with other diabetic kidney complication (principal); R80.9 Proteinuria, unspecified; Z79.4 Long term (current) use of insulin; N18.31 Chronic kidney disease, stage 3a; E11.9 Type 2 diabetes mellitus without complications
CPT/HCPCS: 36415; 80053; 80061; 82306; 84156; 84166; 86335; 83036; 83735; 83970; 84100; 84165

== ENCOUNTER → 2025-07-23 00:22 | Outpatient (CLI) | payer MEDICARE, SELFPAY ==
--- NOTE | 2025-07-23 06:30 | DI.US_ITS ---
Exam(s) US ABDOMEN LIMITED EXAM: US ABDOMEN LIMITED CLINICAL HISTORY: GB polyps/elevated alk phos,k82.4,r74.8 TECHNIQUE: Ultrasound abdomen performed using standard protocol. COMPARISON: US US ABDOMEN from 07/12/2024 FINDINGS: PANCREAS: Normal where visualized. LIVER: Normal. Hepatopetal flow in the Portal Vein. The liver measures in 17.6 cm length. No evidence of a hepatic mass. GALLBLADDER: No evidence of cholelithiasis. No evidence of wall thickening. No pericholecystic fluid identified. There again seen small nonshadowing nodules along the wall of the gallbladder most suggestive of gallbladder polyps. BILIARY SYSTEM: Common bile duct measures < 7 mm. No intrahepatic biliary ductal dilation. CHASE'S SIGN: Negative. RIGHT KIDNEY: Kidney is normal in size. No evidence of renal calculi. No evidence of hydronephrosis. There is a simple cyst seen in the mid right kidney. No follow-up is recommended. ASCITES: None seen. IMPRESSION: 1. Small gallbladder polyps. 2. No evidence of cholelithiasis or findings to suggest acute cholecystitis. DATA REPOSITORY:
== END ==
PROVIDERS: PCP Family Medicine; Visit Provider Surgery
DX: K82.4 Cholesterolosis of gallbladder (principal); R74.8 Abnormal levels of other serum enzymes
CPT/HCPCS: 76705

== ENCOUNTER 2025-07-29 10:21 | Outpatient (CLI) | payer MEDICARE, SELFPAY ==
[2025-07-29 09:13] LABS: Microalb ug/mg Crea 274.2 ug/mg Cr
[2025-07-29 09:16] LABS: ALT 39 U/L (10-49); AST 40 U/L (<34); Albumin 4.1 g/dL (3.2-5.0); Alkaline Phosphatase 158 U/L (46-116); Anion Gap 7.3 mmol/L (3-11); BUN 32 mg/dL (9-23); Bilirubin, Total 0.30 mg/dL (0.2-1.2); CO2 26.7 mmol/L (20.0-31.0); Calcium 9.1 mg/dL (8.3-10.6); Chloride 105 mmol/L (98-107); Cholesterol 114 mg/dL (<200); Glucose 121 mg/dL (74-106); HDL Cholesterol 34 mg/dL (>40); Potassium 4.3 mmol/L (3.5-5.1); Sodium 139 mmol/L (136-145); Total Protein 6.6 g/dL (5.7-8.2)
[2025-07-29 09:45] LABS: Hemoglobin A1C 6.5 % (<5.7)
[2025-07-29 18:18] LABS: PSA, Screening 3.2 ng/mL (<=6.5)
== END 2025-07-29 10:22 | disposition home or self-care (01) ==
LOC: LBO 10:21
PROVIDERS: PCP Family Medicine; Visit Provider Family Medicine
DX: E11.9 Type 2 diabetes mellitus without complications (principal); E11.29 Type 2 diabetes mellitus with other diabetic kidney complication; R80.9 Proteinuria, unspecified; Z79.4 Long term (current) use of insulin; Z12.5 Encounter for screening for malignant neoplasm of prostate
CPT/HCPCS: 36415; 80053; 80061; 84153; 82043; 82570; 83036

== ENCOUNTER 2025-08-06 09:09 | Outpatient (CLI) | payer MEDICARE, SELFPAY ==
[2025-08-06 13:46] LABS: Ferritin 128 ng/mL (11-307)
== END 2025-08-06 09:10 | disposition home or self-care (01) ==
PROVIDERS: PCP Family Medicine; Visit Provider Family Medicine
DX: N18.30 Chronic kidney disease, stage 3 unspecified (principal); G47.62 Sleep related leg cramps
CPT/HCPCS: 36415; 82728